=== PATIENT | female | born 1985 | race Caucasian/White ===

== ENCOUNTER 2024-06-07 16:22 | Outpatient (CLI) | payer OTHER, SELFPAY ==
--- NOTE | ~2024-06-07 | XR_ITS ---
EXAM: XR ankle RT 2V, XR ankle LT 2V, XR foot LT 2V, XR foot RT 2V DATE: 06/07/2024 17:02 HISTORY: MULTIPLE JOINT PAIN . COMPARISON: None available. FINDINGS: Normal mineralization. No fracture or dislocation. No lytic or blastic lesion. Mild bilate ral hallux valgus. Joint spaces are maintained. Small osseous excrescences along the superior margin of the navicular bones, larger on the left, of doubtful clinical significance. Prominent os trigonum on the left. Bipartite medial sesamoid bone on the right. Moderate bilateral Achilles and plantar ent hesopathy. No erosion or periosteal change. Soft tissues within normal limits. IMPRESSION: No acute osseous finding in the bilateral ankles or feet, or radiographic evidence of significant art hropathy. Mild bilateral hallux valgus. Prominent left os trigonum which could be a source of chronic posterior ankle pain in some patients. Bipartite medial sesamoid bone in the right MTP joint, likely normal variant unless accompanied by po int tenderness/pain. Moderate Achilles and plantar enthesopathy. Reviewed, dictated and finalized at [facility]. IMPRESSION: No acute osseous finding in the bilateral ankles or feet, or radiographic evide nce of significant arthropathy. Mild bilateral hallux valgus. Prominent left os trigonum which could be a source of chronic posterior ankle p ain in some patients. Bipartite medial sesamoid bone in the right MTP joint, likely normal variant un less accompanied by point tenderness/pain. Moderate Achilles and plantar enthesopathy. IMPRESSION: No acute osseous finding in the bilateral ankles or feet, or radiographic evide nce of significant arthropathy. Mild bilateral hallux valgus. Prominent left os trigonum which could be a source of chronic posterior ankle p ain in some patients. Bipartite medial sesamoid bone in the right MTP joint, likely normal variant un less accompanied by point tenderness/pain. Moderate Achilles and plantar enthesopathy. IMPRESSION: No acute osseous finding in the bilateral ankles or feet, or radiographic evide nce of significant arthropathy. Mild bilateral hallux valgus. Prominent left os trigonum which could be a source of chronic posterior ankle p ain in some patients. Bipartite medial sesamoid bone in the right MTP joint, likely normal variant un less accompanied by point tenderness/pain. Moderate Achilles and plantar enthesopathy.
--- NOTE | ~2024-06-07 | XR_ITS ---
EXAM: XR hand LT 2V, XR hand RT 2V, XR wrist LT 2V, XR wrist RT 2V DATE: 06/07/2024 17:02 HISTORY: MULTIPLE JOINT PAIN . COMPARISON: None available. FINDINGS: Normal mineralization. No fracture or dislocation. No lytic or blastic lesion. Joint space s are maintained. No erosion or periosteal change. Soft tissues within normal limits. IMPRESSION: Normal bilateral hand and wrist radiograph findings. Reviewed, dictated and finalized at location [facility]. IMPRESSION: Normal bilateral hand and wrist radiograph findings. IMPRESSION: Normal bilateral hand and wrist radiograph findings. IMPRESSION: Normal bilateral hand and wrist radiograph findings.
== END 2024-06-07 16:23 | disposition home or self-care (01) ==
PROVIDERS: PCP Internal Medicine; Visit Provider Internal Medicine
DX: R53.81 Other malaise (principal); M20.12 Hallux valgus (acquired), left foot; M20.11 Hallux valgus (acquired), right foot; M25.871 Other specified joint disorders, right ankle and foot; M25.872 Other specified joint disorders, left ankle and foot; M77.8 Other enthesopathies, not elsewhere classified
CPT/HCPCS: 73100; 73120; 73600; 73620

== ENCOUNTER 2025-02-04 13:11 | Emergency (ER) | payer OTHER, SELFPAY ==
--- OUTSIDE RECORDS SUMMARY | 2025-02-04 13:13 | XMS_ITS | Encounter Summary ---
Author Organization [facility] Address [address] [place] [address] Phone Care Team Providers Care Tailing Hand Name Role Phone Lucille Haney MD Primary Care Provider Jose Ortiz MD Primary Care Provider Isela Shell RN Unavailable Shonna Dupree Unavailable Asif Kang MD Primary Care Provider Encounter Details Date Type Department Care Team (Late st Contact Info) Description 07/25/2020 Telephone [facility] Neuro Sleep [address] [place] [address] 6th [address] [place] [address] Ada Arevalo, RPSGT Social History Tobacco Use Types Packs/Day Years Used Date Smoking Tobacco: Former Cigarettes 0.2 0.5 Alcohol Use Standard Drinks/Week Comments Yes 0 (1 standard drink = 0.6 oz pur e alcohol) AUDIT-C Answer Date Recorded Frequency of Alcohol Consumption 2-4 times a thu09/05/2019 Average Number of Drinks Not on file 019 Frequency of Binge Drinking Not on file 05/2019 PHQ-2 Answer Date Recorded PHQ-2 Total Score (If total score is 3 or more points, staff should administer the PHQ-9) 6 02/24/2020 Comments No Sex and Gender Information Value Date Recorded Sex Assigned at Not on file Legal Sex Female 8:08 AM ELEVATOR OPERATOR Gender Identity Female 07/29/2021 4:09 PM CDT Sexual Orientation Straight 09/01/2019 2: 23 PM ELEVATOR OPERATOR documented as of this encounter Plan of Treatment Not on file documented as of this encounter Visit Diagnoses Not on filedocumented in this encounter Additional Health Concerns Infection Onset Date Last Indicated Resolved Time Exposure, COVID-19 Comment:Added automatically based on COVID19 lab answers indicating exposure risk 10/01/2020 10/01/2020 10/16/2020 3:[address] COVID: Suspected 09/17/2021 09/17/2021 09/17/2021 8:47 AM ELEVATOR OPERATOR COVID: Suspected 09/17/2021 09/17/2021 09/18/2021 3:29 AM ELEVATOR OPERATOR COVID: Suspected 02/19/2022 02/19/2022 02/19/2022 8:31 AM CDT COVID: Suspected 02/19/2022 02/19/2022 02/19/2022 8:40 PM CDT COVID: Suspected 05/29/2022 05/29/2022 05/29/2022 6:50 PM CDT COVID19 05/29/2022 05/29/2022 06/08/2022 3:05 AM CDT COVID: Recovered Comment:Added based on recent COVID infection. 06/08/2022 06/09/2022 10/06/2022 3:[address] documented as of this encounter Care Teams Tailing Hand Relationship Specialty Start Date End Date Lucille Haney MD [address] [place] [address] PCP - General Internal Medicine 08/29/19 03/31/22 Jose Ortiz MD [address] [place] [address] PCP - General Internal Medicine 04/01/22 02/09/23 Asif Kang MD [address] [facility] [address] [place] [address] PCP - General Internal Medicine 02/10/23 Isela Shell, RN [address] [facility] [address] [place] [address] Polishing Pad Mounter 10/08/22 Shonna Dupree PA [address] [facility] NEUROLOGY GENERAL, [facility] [address] [place] [address] Physician Gaming Table Operator Physician Gaming Table Operator 02/10/23 documented as of this encounter
--- OUTSIDE RECORDS SUMMARY | 2025-02-04 13:13 | XMS_ITS | Patient Health Record ---
Author Organization [facility] Address [address] [address] Care Team Providers Care Concrete Pump Operator Helper Name Role Phone Nisa Lozada Primary Care Provider [phone] Migration, Provider Unavailable Unavailable Results Component Value Reference Range Notes CORTISOL, TOTAL Reviewed date:02/15/2024 10:08:18 AM Interpretation: Performing Lab:[facility], [address], [place], [address] Salud Tellez MD Notes/Report: FASTING:YES FASTING: YES COMPREHENSIVE METABOLIC PANE L Reviewed date:02/16/2024 10:56:23 AM Interpretation: Performing Lab:[facility], [address], [place], [address] Salud Tellez Notes/Report: FASTING:YES FASTING: YES CYCLIC CITRULLINATED PEPTIDE (CCP) AB (IGG) Reviewed date:02/17/2024 07:13:07 PM Interpretation: Performing Lab:[facility], [address], [place], [address] Salud Tellez MD Notes/Report: FASTING:YES FASTING: YES ACTH, PLASMA Reviewed date:02/23/2024 08:48:44 AM Interpretation: Performing Lab:[facility], [address], [place], [address] Branden Renteria M.D.,PhD Notes/Report: FASTING:YES FASTING: YES JUSTIN IFA SCREEN W/REFL TO TIT ER AND PATTERN, IFA Reviewed date:02/17/2024 07:14:16 PM Interpretation: Performing Lab:[facility], [address], [place], [address] Salud Tellez MD Notes/Report: FASTING:YES FASTING: YES T3, FREE Reviewed date:02/16/2024 10:57:25 AM Interpretation: Performing Lab:[facility], [address], [place], [address] Salud Tellez MD Notes/Report: FASTING:YES FASTING: YES CORTISOL, TOTAL Reviewed date:02/17/2024 07:12:23 PM Interpretation: Performing Lab:[facility], [address], [place], [address] Salud Tellez MD Notes/Report: FASTING:YES FASTING: YES ESTRADIOL Reviewed date:02/16/2024 10:57:53 AM Interpretation: Performing [facility], [address], [place], [address] MarilinKim Tellez Notes/Report: FASTING:YES FASTING: YES RHEUMATOID FACTOR Reviewed date:02/17/2024 07:13:46 PM Interpretation: Performing Lab:[facility], [address], [place], [address] Salud Tellez MD Notes/Report: FASTING:YES FASTING: YES C-REACTIVE PROTEIN Reviewed date:02/17/2024 07:13:24 PM Interpretation: Performing Lab:[facility], [address], [place], [address] Salud Tellez MD Notes/Report: FASTING:YES FASTING: YES FSH Reviewed date:02/16/2024 10:56:51 AM Interpretation: Performing Lab:[facility], [address], [place], [address] Salud Tellez MD Notes/Report: FASTING:YES FASTING: YES COMPLEMENT COMP C3 + C4 Reviewed date:02/17/2024 07:13:16 PM Interpretation: Performing Lab:[facility], [address], [place], [address] Salud Tellez MD Notes/Report: FASTING:YES FASTING: YES COMPLEMENT COMPONENT C3C 117 83-193 mg/dL COMPLEMENT COMPONENT C4C 29 15-57 mg/dL LH Reviewed date:02/16/2024 10:56:57 AM Interpretation: Performing Lab:[facility], [address], [place], [address] Salud Tellez MD Notes/Report: FASTING:YES FASTING: YES PROGESTERONE Reviewed date:02/16/2024 10:58:00 AM Interpretation: Performing Lab:[facility], [address] [place], [address] Salud Tellez Notes/Report: FASTING:YES FASTING: YES PROLACTIN Reviewed date:02/16/2024 10:56:45 AM Interpretation: Performing Lab:[facility], [address], [place], [address] Salud Tellez MD Notes/Report: FASTING:YES FASTING: YES IRON AND TOTAL IRON BINDING CAPACITY Reviewed date:02/16/2024 10:56:30 AM Interpretation: Performing Lab:[facility], [address], [place], [address] Salud Tellez MD Notes/Report: FASTING:YES FASTING: YES SED RATE BY MODIFIED KEITH SALAZAR Reviewed date:02/16/2024 10:56:03 AM Interpretation: Performing Lab:[facility], [address] [place], [address] Salud Tellez Notes/Report: FASTING:YES FASTING: YES T4, FREE Reviewed date:02/16/2024 10:57:15 AM Interpretation: Performing Lab:[facility], [address], [place], [address] Salud Tellez MD Notes/Report: FASTING:YES FASTING: YES TSH Reviewed date:02/15/2024 06:15:09 PM Interpretation: Performing Lab:[facility], [address] [place], [address] Salud Tellez Notes/Report: FASTING:YES FASTING: YES TESTOSTERONE, FREE (DIALYSIS ) AND TOTAL,MS Reviewed date:02/17/2024 07:12:13 PM Interpretation: Performing Lab:[facility], [address] [facility] [address], [place], [address] Paty Tavares MD,PhD Notes/Report: FASTING:YES FASTING: YES TESTOSTERONE, TOTAL, MS 14 2-45 ng/dL For additional information, please refer to https://education.Tricida/faq/OCK120 (This link is being provided for informational/educational purposes only.) (Note) This test was developed and its analytical performance characteristics have been determined by [employer]. It has not been cleared or approved by the FDA. This assay has been validated pursuant to the CLIA regulations and is used for clinical purposes. TESTOSTERONE, FREE 1.4 0.1-6.4 pg/mL (Note) This test was developed and its analytical performance characteristics have been determined by [employer]. It has not been cleared or approved by the FDA. This assay has been validated pursuant to the CLIA regulations and is used for clinical purposes. [facility] [address] [address] [facility] [address] Paty Tavares MD, PhD Medications Medication SIG (Take, Route, Frequency, Duration) Notes Start Date End Date Status Vyvanse 40 MG TAKE 1 CAPSULE (40 M G TOTAL) BY MOUTH EVERY MORNING. for 30 Days Unknown Cymbalta 6 MG *Please review and pick correct strength-formulati on from [employer] options. If intended option is not shown, discontinue and re-order from Quick Search* Unknown Dodex 1000 MCG/ML inject 1000 mcg subcutaneously once weekly for 90 days 02/09/2024 Unknown Zepbound 5 MG/0.5ML as directed subcutaneously once a week Unknown Omeprazole 40 MG 1 cap(s) orally once a day Unknown Problems Problem Type SNOMED Code ICD Code Onset Dates Problem Status W/U Status Risk Notes Problem Hypothyroidism (56710648) Hypothyroidism, unspecified (E03.9) Active confirmed Problem Non-toxic single thyroid nodule (680241523) Nontoxic single thyroid nodule (E04.1) Active confirmed Problem Osteoarthritis (168118615) Unspecified osteoarthritis, unspecified site (M19.90) Active confirmed Problem Obesity (792361179) Obesity, unspecified (E66.9) Active confirmed Problem Autoimmune thyroiditis (64583218) Autoimmune thyroiditis (E06.3) Active confirmed Problem Polyarthritis (580124990) Polyarthritis, unspecified (M13.0) Active confirmed Problem Irregular menstruation (31302750) Irregular menstruation, unspecified (N92.6) Active confirmed Vital Signs Heart Rate 82 /min 05/05/2024 Blood pressure diastolic 97 mm Hg 05/05/2024 Height 66 in 05/05/2024 Blood pressure systolic 140 mm Hg 05/05/2024 Weight 209.0 lbs 05/05/2024 BMI 33.73 kg/m2 05/05/2024 Encounters Encounter Location Date Provider Diagnosis [facility] [address] [place] [address] 02/09/2024 Nisa Lozada Polyarthritis, unspecified M13.0 ; Other fatigue R53.83 ; Vitamin B12 deficiency anemia, unspecified D51.9 ; Irregular menstruation, unspecified N92.6 ; Raised antibody titer R76.0 and Family history of arthritis Z82.61 [facility] [address] [place] [address] 05/05/2024 Nisa Lozada Autoimmune thyroiditis E06.3 ; Vitamin B12 deficiency anemia, unspecified D51.9 ; Obesity, unspecified E66.9 and Dietary counseling and surveillance Z71.3 [address] [place] [address] 08/13/2024 Provider Migration [facility] [address] [place] [address] 07/14/2024 Nisa Lozada Assessments Encounter Date Diagnosis (ICD Code) Assessment Notes Treatment Notes Treatment Clinical Notes Section Notes 02/09/2024 Other fatigue (ICD-10 - R53.83) Send for full iron/vitamin panel. She has borderline low B12- will supplement. Recommended thyroid support / purely holistic to help maintain endogenous thyroid function as she has had back and forth diagnosis hypothyroidism- her most recent TSH/FT4 in ideal range so no clinical indication to start on thyroid replacement at this time. Send for DST to screen for hypercortisolism. 02/09/2024 Polyarthritis, unspecified (ICD-10 - M13.0) CCP antibody with significant pain in ankles, feet, neck and fingers bilaterally- with positive family history of RA. She also exhibits significant fatigue and generalized malaise. Recommended patient consider AIP diet as a potential alternative to help eradicate refined sugars and processed foods that cause inflammation. Refer to rheumatology. 05/05/2024 Vitamin B12 deficiency anemia, unspecified (ICD-10 - D51.9) Continue B12 weekly injections. 05/05/2024 Autoimmune thyroiditis (ICD-10 - E06.3) TSH and FT4 in range- continue on purely holistic thyroid support- patient has noted improvement in hair and nails since start of supplementation along with improvement in sleep and energy/focus. Continue on supplementation for now along with diet low in refined sugars and processed foods. She will be seeing rheumatology at the end of the month for positive CCP antibodies to screen for RA. 02/09/2024 Vitamin B12 deficiency anemia, unspecified (ICD-10 - D51.9) Send for B12 injections- she is aware to complete these once weekly subcutaneously. 05/05/2024 Obesity, unspecified (ICD-10 - E66.9) Continue on zepbound 5 mg weekly-patient tolerating well, weight has not dropped but overall stable, her appetite is suppressed and she is eating better choices/higher protein/lower starch. She is aware to reach out if any nausea, vomiting or GI upset. 02/09/2024 Irregular menstruation, unspecified (ICD-10 - N92.6) Send for full hormone panel- she is on copper IUD so no hormonal influence at this time. 05/05/2024 Dietary counseling and surveillance (ICD-10 - Z71.3) discussed dietary measures in regards to weight loss- importance to restrict calories to 1200 per day if sedentary vs 3151-7714 calories depending on caloric expenditure. She was provided information on griffin [employer] as this program manages metabolic syndrome and products include insulin sensitizers along with thyroid support/supplementa tion to help tailor weight loss in individuals who struggle with underlying autoimmune thyroid conditions and hyperglycemia (fasting glucose of 97 mg/dL). Spent up to 20 minutes discussing alternative weight loss options. 02/09/2024 Raised antibody titer (ICD-10 - R76.0) Refer to rheumatology with mildly positive CCP, positive arthritis and strong family hx of RA. 02/09/2024 Family history of arthritis (ICD-10 - Z82.61) 02/09/2024 Other Spent 25 minute s preparing to see the patient (ex review of tests/chart), obtaining and / or reviewing separately obtained history, performing a medically appropriate examination and/or evaluation, counseling and educating the patient/family/career development director, ordering medications, tests, or procedures, referring and communicating with other health home health caregiver, documenting clinical information in the electronic or other health record, independently interpreting results and communicating results to the patient/family/career development director and care coordinating patient plan. Patient alert and oriented x 4 and aware of discussion noted above and in agreeance to plan in management of fatigue, finding of positive CCP and workup for hormone panel. 05/05/2024 Other Spent 25 minute s preparing to see the patient (ex review of tests/chart), obtaining and / or reviewing separately obtained history, performing a medically appropriate examination and/or evaluation, counseling and educating the patient/family/career development director, ordering medications, tests, or procedures, referring and communicating with other health home health caregiver, documenting clinical information in the electronic or other health record, independently interpreting results and communicating results to the patient/family/career development director and care coordinating patient plan. Patient alert and oriented x 4 and aware of discussion noted above and in agreeance to plan in management of weight management/obesity, vitamin B12 def and autoimmune thyroiditis. Plan Of Treatment Pending Test Test Name Order Date Ultrasound neck & thyroid 12/11/2023 -CCP ANTIBODY 3133 12/11/2023 Ultrasound thyroid 12/11/2023 DNA(DS) AB, HIGH AVIDITY 12/11/2023 THYROID PEROXIDASE AND THYROGLOBULIN ANT IBODIES 12/11/2023 Insurance Providers Payer Name Payer Address Payer Phone Subscriber Number Group Number Insured Name Patient Relationship to Insured Coverage Start Date Coverage End Date [facility] [address] [address] [place] [address] [id number] Halima Becerra Self - patient is the insured
--- OUTSIDE RECORDS SUMMARY | 2025-02-04 13:13 | XMS_ITS ---
Author Organization [facility] [employer] [facility] Address [address] [facility] [place] [address] Care Team Providers Care Head Of Advertising Name Role Phone Nisa Lozada Primary Care Provider Encounters Encounter Location Date Provider Diagnosis [facility] - Nisa Lozada [address] [place] [address] 07/14/2024 Nisa Lozada Plan Of Treatment No Information Progress Notes * Cain BECERRAOB:[birth year] (38 yo F)Acc No.[id number]:07/14/2024 Patient: Halima NATHAN :1985 A ge:38 Y S ex:Female Phone: Address: [place] [address] * true * Date: Generated for Printi ng/Fashellyg/eTransmitting on: 0 02/04/2025 01:13 PM CDT
--- OUTSIDE RECORDS SUMMARY | 2025-02-04 13:13 | XMS_ITS | Clinical Summary ---
Author Organization [facility] Address [address] [place] [address] [place] [address] Care Team Providers Care Tariff Clerk Name Role Phone Unavailable Primary Care Provider Unavailabl e Allergies No known active allergies Encounters Date Type Department Care Team Description 12/14/2024 External Device Data [facility] ABSTRACTION Provider, Abstract 12/03/2024 External Device Data [facility] ABSTRACTION Provider, Abstract 12/02/2024 External Device Data [facility] ABSTRACTION Provider, Abstract 11/30/2024 External Device Data [facility] ABSTRACTION Provider, Abstract 11/16/2024 External Device Data [facility] ABSTRACTION Provider, Abstract from Last 3 Months Social History Tobacco Use Types Packs/Day Years Used Date Smoking Tobacco: Never Assessed Comments Unknown Sex and Gender Information Value Date Recorded Sex Assigned at Not on file Legal Sex Female 1:10 PM CDT Gender Identity Not on file Sexual Orientation Not on file Plan of Treatment Health Maintenance Due Date Last Done Comments DTAP/TDAP/TD VACCINES (1 - Tdap) 2002 HEPATITIS B VACCINES (1 of 3 - 19+ 3-dose series) 2002 HPV/Cotest (21-29) 2004 CERVICAL CANCER SCREENING 2013 HPV/Cotest (30-65) 2013 PAP SMEAR 2013 BREAST CANCER SCREENING 2023 INFLUENZA VACCINE (#1) 2024 HPV VACCINES Aged Out No longer eligi ble based on patient's age to complete this topic Insurance [employer]
--- OUTSIDE RECORDS SUMMARY | 2025-02-04 13:13 | XMS_ITS | Continuity of Care Document ---
Author Organization [facility] Address [address] [place] [address] Phone Care Team Providers Care Estimate Clerk Name Role Phone Larry PT,MPT,ATC, Andrew Unavailable Unavai lable Procedures Procedure Date Therapeutic Activities Neuromuscular Re-Ed Manual Therapy Therapeutic Activities Manual Therapy Neuromuscular Re-Ed Neuromuscular Re-Ed Therapeutic Activities Therapeutic Exercise Therapeutic Activities Therapeutic Exercise Neuromuscular Re-Ed Therapeutic Activities Neuromuscular Re-Ed Therapeutic Exercise Therapeutic Activities Neuromuscular Re-Ed Therapeutic Exercise Therapeutic Activities Neuromuscular Re-Ed Therapeutic Exercise Manual Therapy Neuromuscular Re-Ed PT Evaluation Moderate Complexity Therapeutic Activities Advance Directives Directive Yes / No Effective Date File Name No Information Encounters Encounter Description Practice Location Reason(s) For Visit Diagnoses Date Provider Providers Copied on Encounter [facility], [address], [place], [place], [id number], tel:[phone] [place] No Information Larry Muniz , [place], [place]. [facility], [place], [place], [id number], [place] tel:[phone] [place] No Information 2 Larry Muniz , [place], [place]. Referring Provider: Clint Sanabria, [address], [place], [address]. tel:[phone] [place] [id number] [address], [place], [place], [id number], [place] tel:[phone] [place] No Information 2 Josejulissa Den. . Referring Provider: Clint Sanabria, [address], [place], [address]. tel:[phone] [place] [id number] [address], [place], [place], [id number], [place] tel:[phone] [place] No Information 2 Larry Muniz , [place], [place]. Referring Provider: Clint Sanabria, [address], [place], [address]. tel:[phone] [place] [id number] [address], [place], [place], [id number], [place] tel:[phone] [place] No Information 2 Larry Muniz , [place], [place]. Referring Provider: Clint Sanabria, [address], [place], [address]. tel:[phone] [place] [id number] [address], [place], [place], [id number], [place] tel:[phone] [place] No Information 2 Larry Muniz , [place], [place]. Referring Provider: Clint Sanabria, [address], [place], [address]. tel:[phone] [facility], [place], [place], [id number], [place] tel:[phone] [place] No Information 2 Short Zaynab. . Referring Provider: Clint Sanabria, [address], [place], [address]. tel:[phone] [facility], [address], [place], [place], [id number], tel:[phone] [place] No Information 2 [facility]. Referring Provider: Clint Sanabria, [address], [place], [address]. tel:[phone] [facility] [address], [place], [place], [id number], tel:[phone] [place] No Information 2 [place], . Referring Provider: Clint Sanabria, [address], [place], [address]. tel:[phone] Family History Family Member Type Diagnosis Age At Onset No Information Payers Payer name Insurance type Covered green party ID [facility] dangelorosario(s) [facility] CI [id number] Social History Type Description Quantity Date Captured Comments Sex Female Smoking Status No Information Chief Complaint And Reason For Visit No Information Reason For Referral Reason For Referral No Information History Of Present Illness Encounter Date Complaint History Of Prese nt Illness No Information Functional Status Date Functional Assessmen t No Information Instructions Date Instruction Lio Irizarryr erika Giving encouragement to exercise Related to Overweight Giving encouragement to exercise Related to Overweight Assessments Type Assessment Date No Information Patient Care Teams Name Effective Dates (start - stop) Status Members No Information
--- OUTSIDE RECORDS SUMMARY | 2025-02-04 13:14 | XMS_ITS | Referral Summary ---
Author Organization [facility] Address [address] [place] [address] Care Team Providers Care Territory Account Representative Name Role Phone Shonna Dupree Unavailable [phone] Asif Kang MD Primary Care Provider Encounters Date Type Department Care Team Description 02/02/2025 4:00 PM CDT Procedure visit [facility] [address] [facility] 6th Floor [address] [place] [address] Filiberto Matos MD Intractable chronic migraine without aura and without status migrainosus (Primary Dx) 12/12/2024 9:00 AM CDT Office Visit [facility] [address] [facility] 7th [address] [place] [address] Makeda Jimenez MD Encounter for annual routine gynecological examination (Primary Dx); Abnormal mammogram; Encounter for routine checking of intrauterine contraceptive device (IUD); Mitral valve insufficiency, unspecified etiology; Mixed stress and urge urinary incontinence; CHAR (generalized anxiety disorder); Recurrent major depressive disorder, in full remission; Attention deficit hyperactivity disorder (ADHD), predominantly inattentive type; History of bariatric surgery; History of spinal fusion 11/21/2024 3:00 PM PHOTOENGRAVING MACHINE OPERATOR/TENDER Procedure visit [facility] [address] [facility] [address] [place] [address] [phone] MDD (major depressive disorder), recurrent severe, without psychosis (HCC) (Primary Dx) 11/14/2024 3:00 PM PHOTOENGRAVING MACHINE OPERATOR/TENDER Procedure visit [facility] [address] [place] [phone] MDD (major depressive disorder), recurrent severe, without psychosis (HCC) (Primary Dx) 11/11/2024 Orders Only [facility] [address] [place] [address] [place] [phone] Raven Allen Intractable chronic migraine without aura and without status migrainosus (Primary Dx) 11/11/2024 3:00 PM PHOTOENGRAVING MACHINE OPERATOR/TENDER Office Visit [facility] [address] [place] [address] [phone] Jane Orosco MD Severe episode of recurrent major depressive disorder, without psychotic features (HCC) (Primary Dx) 11/11/2024 3:00 PM PHOTOENGRAVING MACHINE OPERATOR/TENDER Procedure visit [facility] [address] [place] [address] [phone] MDD (major depressive disorder), recurrent severe, without psychosis (HCC) (Primary Dx) 11/10/2024 4:00 PM PHOTOENGRAVING MACHINE OPERATOR/TENDER Procedure visit [facility] [address] [place] [phone] Filiberto Matos MD Intractable chronic migraine without aura and without status migrainosus (Primary Dx) 11/07/2024 3:00 PM PHOTOENGRAVING MACHINE OPERATOR/TENDER Procedure visit [facility] [address] [place] [address] [phone] Severe episode of recurrent major depressive disorder, without psychotic features (HCC) [F33.2] (Primary Dx) from Last 3 Months Allergies Active Allergy Reactions Criticality Noted Date Comments Sulfamethoxazole-Trimethoprim Hives Medium 2019 Topiramate Fatigue Low 02/25/2023 Medications * This document contains information received from the source organization and may not represent a complete record from that organization. levonorgestreL (LILETTA) 20.1 mcg/24 hrs (6 yrs) 52 mg IUDIndications:Pr egnancy Contraception 1 each by intrauterine route once Active multivit with calcium,iron,min (WOMEN'S DAILY MULTIVITAMIN ORAL)Indications: prevent vitamin deficiency Take 1 tablet by mouth every morning Active DULoxetine DR (CYMBALTA) 60 mg capsule Take 1 capsule (60 mg total) by mouth daily 30 capsule 11 04/19/20 24 Active cyanocobalamin (Vitamin B-12) 1,000 mcg/mL injection INJECT 1000 MCG SUBCUTANEOUSLY ONCE WEEKLY 04/29/20 24 Active ubrogepant (UBRELVY) 100 mg tabletIndications :Chronic migraine without aura without status migrainosus, not intractable Take 1 tablet (100 mg total) by mouth once as needed for migraine May repeat dose once in 2 hours if no relief. Do not exceed 2 doses in 24 hours. 10 tablet 11 09/12/20 24 025 Active tirzepatide, weight loss, (Zepbound) 5 mg/0.5 mL pen injectorIndicatio ns:BMI 35.0-35.9,adult Inject 0.5 mL (5 mg total) under the skin every 7 days 2 mL 3 01/21/20 25 Active ondansetron ODT (ZOFRAN-ODT) 4 mg disintegrating tabletIndications :Intestinal malabsorption, unspecified type Take 1 tablet (4 mg total) by mouth every 8 (eight) hours as needed for nausea 9 tablet 2 01/21/20 25 Active nitrofurantoin monohydrate (MACROBID) 100 mg capsule Take 1 capsule (100 mg total) by mouth 2 (two) times a day for 7 days 14 capsule 02/03/20 25 025 Active tirzepatide, weight loss, (Zepbound) 5 mg/0.5 mL pen injectorIndicatio ns:BMI 35.0-35.9,adult Inject 0.5 mL (5 mg total) under the skin every 7 days 2 mL 3 06/30/20 24 025 Disconti nued(Reo rder) ondansetron ODT (ZOFRAN-ODT) 4 mg disintegrating tabletIndications :Intestinal malabsorption, unspecified type TAKE 1 TABLET BY MOUTH EVERY 8 HOURS NEEDED FOR NAUSEA 9 tablet 2 12/03/19 25 025 Darrius mueller([facility]) Hospital, Clinic, or Other Facility Administered Medication Ordered Dose Route Frequency Start Date End Date Status onabotulinumtoxin A (BOTOX) 200 unit injection 200 UnitsIndications:Int ractable chronic migraine without aura and without status migrainosus 200 Units OTHER Once for Clinic-Administer ed Medication 02/02/2025 02/02/2025 Ended Active Problems Problem Noted Date Diagnosed Date Severe episode of recurrent major depressive disorder, without psychotic features 05/12/2024 Overview (05/12/2024): Pt stated, I really want to find darnell in life. I really want to attack this depression and anxiety to the point where it is not just being muted by medication. Assessment & Plan (07/26/2024 6:07 PM CDT): By the end of the 16 sessions, Pt will learn at least 3 new CBT and DBT coping skills in order to reduce her anxiety and depression by at least 50-60 percent. Assessment & Plan (05/12/2024 1:13 PM CDT): By the end of the 16 sessions, Pt will learn at least 3 new CBT and DBT coping skills in order to reduce her anxiety and depression by at least 50-60 percent. Moderate episode of recurrent major depressive d isorder 10/28/2023 LLQ pain 10/26/2023 Assessment & Plan (10/26/2023 10:40 AM PHOTOENGRAVING MACHINE OPERATOR/TENDER): To usg Syncope and collapse 03/22/2023 Assessment & Plan (06/07/2024 3:51 PM CDT): 38-year-old female with recurrent episodes of spontaneous loss of consciousness. By history I think these episodes sound most consistent with vasovagal syncope. This is in keeping with her structurally normal heart, benign EKG and orthostatic vital signs being negative. Seizures would be a less likely etiology. I think a bradyarrhythmia causing her symptoms would be less likely given the above, but is certainly a possibility. Will do a 30 day event monitor for further evaluation. If this is unremarkable and she has no further events, can defer further evaluation. If she continues to have periodic events that are not captured on a monitor, discussed EP referral with possible loop recorder implantation/tilt-table testing. Recommended regular hydration, consideration of compression socks. She has had multiple echocardiograms in the near recent history so I do not think repeating this is necessary at this time Assessment & Plan (03/22/2023 1:19 PM CDT): Etiology likely vasovagal syncope. Alert and oriented x4, exam with point tenderness of multilevel cervical and lumbar regions, no sensory or motor deficits noted on hospitalist exam in ED. Ct head, spine with no acute abnormalities. Features of fainting episode suggest vasovagal (lightheadeded, dizzy, cold flash) and are consist with a previous vasovagal episode in 2019 which was more severe after donating platelets (white out vision, cold flash, persistent hypotension, EMS called). Neuro exam remained normal at 1000 03/22/23. She was given a liter of fluid due to relative hypotension and self attested poor oral intake allowed in the ED overnight with subjective dehydration. While she has exclusion criteria for [place] Syncope Risk Score or [place] Syncope Rule, there are several features of low risk syncopal episode. She is <50 years of age. No history of cardiovascular disease. Prodromal symptoms before the syncope (suggestive of noncardiac syncope). Occurred in the standing position. EKG is normal. Previous episode of syncope with clear trigger and similar presentation. Normal physical exam, neurologic exam, and laboratory evaluation. No central pulmonary embolism, no acute abnormality within the chest, abdomen, or pelvis. No acute intracranial hemorrhage. No evidence of acute fracture in the cervical, thoracic, or lumbar spine, given limited assessment of the thoracolumbar spine due to streak artifact from posterior instrumented spinal fusion. Episode is not consistent with seizure. Upper respiratory disease 03/22/2023 Assessment & Plan (03/22/2023 4:39 AM CDT): Has been on flonase, continue prn Concussion 03/22/2023 Assessment & Plan (03/22/2023 1:33 PM CDT): TBI after fainting with ~10 minute LoC and post TBI amnesia. Neuroimaging is negative and she has no neurological deficits identified on exam this AM. She has had resolving amnesia, and her chronic headache is back at baseline. She is remembering more and more details about the event, and recalls feeling ill all day. She may have had headache associated with the TBI, if so, it has greatly improved by discharge, back to baseline. After head injury, most patients with reassuring clinical features with normal neuroimaging can be managed safely as outpatients after an initial period of observation. She has been observed for a sufficient length of time (>6 hours) and is safe and agreeable with discharge. Chronic neck pain 12/23/2022 Assessment & Plan (03/22/2023 12:59 PM CDT): Follows pain management, received trigger point injection on 02/25/23 which helped with pain for 3 days followed by recurrence of pain. Per patient, it felt as if she saved up several headaches and she was quite incapacitated for a period of time. - continue duloxetine, acetaminophen JUSTIN positive 05/13/2022 Euthyroid thyroiditis 05/13/2022 Mitral valve insufficiency 05/13/2022 Arthritis 05/13/2022 Multiple thyroid nodules 05/13/2022 Elevated ferritin 05/13/2022 Esophageal dysphagia 04/17/2022 Well woman exam 03/10/2022 Overview (10/26/2023): Lab: Pap:h/o abnl. Last was normal. Yearly pap recommended Due for labs. Hema: 08/2023- due for repeat in 6m. Dr. Kang is following. Colonoscopy: BMD: Gardasil:up to 43 discussed. Eleanor put in 2018 - as she is not having periods, will continue until the [age] year kassy. Assessment & Plan (10/26/2023 10:40 AM PHOTOENGRAVING MACHINE OPERATOR/TENDER): Pap done. RTO 12m. I will send the results to the portal. If she has not heard in a week, to call the office. Assessment & Plan (03/10/2022 10:06 AM CDT): Pap done. RTO 12m. I will send the results to the portal. If she has not heard in a week, to call the office. To routine labs. She was applauded for her weight loss and encouraged to continue on with her healthy lifestyle. Mixed stress and urge urinary incontinence 03/10 Overview (03/10/2022): Both GSI and urge. Wearing pads Assessment & Plan (03/10/2022 10:01 AM CDT): To ua, micro and c&S. Is interested in anticholingerics. Will RX once ua is back. ANTOINETTE (obstructive sleep apnea) 11/24/2021 Assessment & Plan (03/22/2023 1:01 PM CDT): She has not been tolerating CPAP. - Patient interested to see inspector packer, referral for outpatient on discharge. Iron deficiency 10/27/2021 Assessment & Plan (10/27/2021 2:52 PM PHOTOENGRAVING MACHINE OPERATOR/TENDER): Likely 2/2 gastric bypass. No anemia. - Cont iron supplement, she will ensure she is getting 65mg every day elemental iron. - Needs recheck of iron and ferritin with next labs. Fibromyalgia 10/27/2021 Assessment & Plan (03/22/2023 1:00 PM CDT): Cont duloxetine. Assessment & Plan (10/27/2021 3:06 PM PHOTOENGRAVING MACHINE OPERATOR/TENDER): No e/o inflammatory arthritis on labs or imaging. Sx well controlled on duloxetine. Orthostasis 10/27/2021 Assessment & Plan (10/27/2021 3:19 PM PHOTOENGRAVING MACHINE OPERATOR/TENDER): Per pt orthostatics: laying down for 5 minutes-122/79 61bpm. Sitting for 2 minutes: 113/78 82bpm. Standing for 2 minutes: 109/77 and 94bpm. Recent CBC and CMP normal. - Will check EKG, AM cortisol,TSH to screen for abnormalities, but I think sx more likely related to duloxetine SE. - Rec hydration, inc salt in diet, and compression socks in the meantime. - Red flag sx discussed and she will call if these occur Attention deficit hyperactiv ity disorder (ADHD), predominantly inattentive type 08/02/2021 Assessment & Plan (03/22/2023 4:18 AM CDT): Continue lisdexamfetamine, dose was increased to 40 mg daily by psych on 10/01/2022 Assessment & Plan (10/27/2021 3:05 PM PHOTOENGRAVING MACHINE OPERATOR/TENDER): F/b Dr. Partida. - Cont Adderall XR 20mg every day Chronic sacroiliac pain 12/30/2020 Recurrent major depressive disorder, in full rem ission 08/16/2020 CHAR (generalized anxiety disorder) 02/24/2020 Assessment & Plan (10/27/2021 3:05 PM PHOTOENGRAVING MACHINE OPERATOR/TENDER): Now f/b Dr. Partida. - Cont duloxetine DR 60mg qd Assessment & Plan (02/24/2020 4:37 PM CDT): PHQ Screening PHQ-2 Total Score (If total score is 3 or more points, staff should administer the PHQ-9): 6 PHQ-9 Total Score: 22. CHAR-7 is 21. C/w severe MDD and CHAR. - Pt was counseled regarding duration to effect, duration of treatment, side effects including withdrawal. After discussion of treatment approaches for depression, pt gave informed consent to start duloxetine DR 30mg every day x1 week, then 60mg every day. May have benefits for her lumbar radiculopathy as well.. - Recommended therapy and counseling. - Discussed that SI is an emergency. Provided with crisis resources. - Counseled regarding strategies to reduce stress including physical activity. - Follow-up in 6 weeks. Intractable chronic migraine without aura and without status migrainosus 10/04/2019 Assessment & Plan (10/04/2019 9:59 AM PHOTOENGRAVING MACHINE OPERATOR/TENDER): Recommend she start amytriptyline. ANDRADE diet and supplements discussed. Mixed conductive and sensori neural hearing loss of left ear with restricted hearing of right ear 10/04/2019 Tinnitus of both ears 09/07/2019 Assessment & Plan (09/07/2019 9:14 PM PHOTOENGRAVING MACHINE OPERATOR/TENDER): Given concurrent dizziness, will refer to ENT. - ENT referral today Chronic daily headache 09/07/2019 Assessment & Plan (03/22/2023 12:59 PM CDT): Seen by neurology on 12/23/22 for history of migraines and chronic daily headaches which I different from her prior migrainous attacks. There accompanied by pressure and neck in a squeezing sensation. Headaches are triggered by stress. Recently attempted topiramate with rivegepant, but experienced extreme drowsiness and glossodynia at ODT tablet disintegration site. Recently self discontinued verapamil after 3 weeks due to apparent non-effect. Has also tried cyclobenzaprine perhaps for chronic tension headache and discontinued due to extreme drowsiness. She has experienced intolerable side effects with more than one Triptan. She generally attempts to use a headache cap, takes a melatonin, and sleep to manage daily headaches. We have attempted to get a dose of Fioricet to her, but have experienced delays due to moving between ED and Obs, and narcotic delivery is not fast at [facility]. We will attempt to give a dose, and send a dose to her chosen pharmacy. She will see neurology in 5 days for a routine appointment, which is advantageous in the setting of recent concussion. Assessment & Plan (10/17/2019 5:49 PM PHOTOENGRAVING MACHINE OPERATOR/TENDER): Red flags of new onset after 33 yo, different from prior headache semiology, with new dizziness and tinnitis. Normal neuro exam. Suspect chronic daily migraine with vestibular component. - bMRI with T2 hyperintense fluid in the left mastoid with diffusion restriction. Recommendation is for further evaluation with CT to evaluate underlying bony architecture, particularly if the patient's headaches are left-sided or if there is pain to palpation at this site. Partially empty sella without other signs of increased intracranial pressure such as CSF surrounding the optic nerves, flattening of the globes, or low-lying cerebellar tonsils. - F/u CT tomorrow to evaluate L mastoid. She is seeing ENT tomorrow as well, appreciate insight into MRI findings and dizziness. - Stop topamax d/t paresthesias. - Start amitriptyline 10mg qhs - Poorly tolerant of triptans in the past due to muscle spasms. Can take naproxen 440mg bid prn for headache. - Counseled to limit caffeine and EtOH, maintain hydration, get adequate sleep, get regular physical activity. Assessment & Plan (09/07/2019 9:18 PM PHOTOENGRAVING MACHINE OPERATOR/TENDER): Red flags of new onset after 33 yo, different from prior headache semiology, with new dizziness and tinnitis. Normal neuro exam. Suspect chronic daily migraine with separate vestibular d/o but need to exclude secondary headache. - bMRI w and wo contrast ordered today. - Start topamax 25mg every day. Side effects and expected degree of improvement discussed. - Poorly tolerant of triptans in the past due to muscle spasms. Can take naproxen 440mg bid prn for headache. - Counseled to limit caffeine and EtOH, maintain hydration, get adequate sleep, get regular physical activity. Excessive daytime sleepiness 09/07/2019 Assessment & Plan (09/07/2019 5:09 PM PHOTOENGRAVING MACHINE OPERATOR/TENDER): Stop-Bang is 1, but her daytime sleepiness is severe enough to warrant eval by sleep medicine for ANTOINETTE, narcolepsy, other hypersomnia. - Referral to sleep med. - Counseled to avoid driving when sleepy Cervical radiculopathy 07/19/2012 Herniated lumbar intervertebral disc 07/09/2011 Lumbosacral radiculopathy 07/09/2011 Resolved Problems Problem Noted Date Diagnosed Date Resolved Date Cold right foot 05/13/2022 02/10/2023 Encounter for routine checki ng of intrauterine contraceptive device (IUD) 03/10/2022 02/10/2023 Overview (03/10/2022): eleanor due out 2024 Assessment & Plan (03/10/2022 9:23 AM CDT): Doing well with eleanor. Will continue on. Amenorrheic. Sebaceous cyst 03/10/2022 02/10/2023 Overview (03/10/2022): B/l on vulva- multiple Assessment & Plan (03/10/2022 10:03 AM CDT): We dicussed that I no of no way to prevent and would also recommend watchful waiting. Achilles tendinitis of right lower extremity 2 02/10/2023 Nutritional counseling 05/09/202103/10 Chronic heel pain 12/30/2020 03/10/2022 Polyarthralgia 12/30/2020 10/27/2021 Assessment & Plan (12/30/2020 3:27 PM CDT): With possible enthesitis, sacroiliitis as etiology of ankle and back pain, c/f SpA. Pt reports prior dx of fibromyalgia with significant improvement on gabapentin previously. - Labs/ imaging as noted. - Discussed today the pathophysiology, dx, and tx of fibromyalgia. She does not have typical tender points on exam today, but discussed this is no longer required for diagnosis. While above studies are pending, can start gabapentin 300mg qhs and increase to tid as tolerated. Recommended regular, low impact physical activity as well. Dyspnea on exertion 10/07/2020 10/27/19 Assessment & Plan (10/07/2020 9:08 PM PHOTOENGRAVING MACHINE OPERATOR/TENDER): With recent EKG showing RSR' in V1 and low voltages. Suspect this is a variant of normal and DOWLING is due to deconditioning, but will eval for cardiopulmonary etiologies. She has no risk factors for CV disease save for obesity and a minimal smoking history (quit in 2007). Recent CBC without e/o anemia - Red flag sx discussed and she will present to ED if these occur Frequent urinary tract infections 09/06/2020 02/10/2023 Overview (03/22/2022): 03/22/22- staph - see results Morbid obesity (CMS/[facility]) 08/02/2020 Assessment & Plan (10/27/2021 3:04 PM PHOTOENGRAVING MACHINE OPERATOR/TENDER): Now with 73lbs of weight loss since sleeve gastrectomy 04/2021. - Cont f/u with bariatric surgery - cont healthy diet and exercise. - cont bariatric MVI Urinary urgency 01/02/2020 02/10/2023 Assessment & Plan (01/02/2020 2:42 PM CDT): Given typical UTI sx, will treat empirically while awaiting lab results. - UA ordered - Tx with macrobid 100mg bid x5 days. SER - Counseled to hydrate, void after intercourse. - Red flag sx discussed and she will call if these occur - Rec she reduce bladder irritants in diet given hx of mild chronic urgency. Acute nasopharyngitis 10/17/20192021 Assessment & Plan (10/17/2019 5:51 PM PHOTOENGRAVING MACHINE OPERATOR/TENDER): Seen at and dx with bronchitis. No e/o wheezing on exam today, suspect post nasal drip is responsible for cough. No sx of bacterial sinusistis or otitis media today. - Complete steroids as rx by urgent care. Can trial albuterol for cough. - Recommend nasal fluticasone (Flonase) with 2 sprays in each nostril once a day. - Rest, hydration, can trial humidifier and facial steaming as well for sx. Conductive hearing loss of l eft ear with unrestricted hearing of right ear 10/04/20192022 Assessment & Plan (10/04/2019 10:00 AM PHOTOENGRAVING MACHINE OPERATOR/TENDER): TM appears lateralized on exam. We discussed options of amplification, surgery- she will consider. MRI shows area in mastoid possibly concerning for cholesteatoma which is possible given her history of ear surgery at 6 yo- will followup CT. I do not think her symptoms are likely related to the mastoid lesion. Conductive hearing loss of r ight ear with restricted hearing of left ear 10/04/2019 3 Fatigue 09/07/2019 10/27/2021 Routine general medical exam ination at a health care facility 09/05/2019 03/10/2022 Assessment & Plan (10/25/2021 11:38 AM PHOTOENGRAVING MACHINE OPERATOR/TENDER): - Depression screen: PHQ Screening - A1c: normal - Lipids: normal - Mammogram Discuss at 38 - Pap: 12/2017, WNL, hx of abnormals. F/b [facility]. - HIV: prev screened and negative - Hep C: screen today - Other STI screen: not indicated - Influenza: UTD - - Td/Tdap: likely UTD 2017. - HPV: not done - COVID booster UTD Routine health maintenance objectives discussed and orders placed for any outstanding screening studies as noted. Physical exam performed as above.Routine annual labs, if needed, have been ordered and will be reviewed with patient when results available. Assessment & Plan (09/05/2019 10:46 AM PHOTOENGRAVING MACHINE OPERATOR/TENDER): - Depression screen: PHQ Screening PHQ-2 Total Score (If total score is 3 or more points, staff should administer the PHQ-9): 0 - A1c: screen, family hx - Lipids: screen today - Mammogram Discuss at 38 - Pap: 12/2017, WNL, hx of abnormals - HIV: prev screened and negative - Other STI screen: not indicated - Influenza: UTD 19-20 - Td/Tdap: unsure - HPV: not done Routine health maintenance objectives discussed and orders placed for any outstanding screening studies as noted. Physical exam performed as above.Routine annual labs, if needed, have been ordered and will be reviewed with patient when results available. History of arthrodesis 07/09/201102/10 Immunizations Immunization Administration Dates Next Due COVID-19 mRNA ([employer]) 0.3 m L (30 mcg) vaccine (12 years and up) 06/27/2024 Influenza, Trivalent, Cell C ulture-based MDCK, Preservative Free, Antibiotic Free, Intramuscular 06/27/2024 Influenza, Unspecified 06/28/2022 [employer] SARS-CoV-2 Monovalent Vaccination (12+ Yrs) SHIN-READY TO USE 10/17/2021 Pfizer SARS-CoV-2 Monovalent Vaccination (12+ Yrs) PURPLE 10/25/2020,10/06/2020 Social History Tobacco Use Types Packs/Day Years Used Date Smoking Tobacco: Never Smokeless Tobacco: Never Tobacco Cessation:Counseling Given: Not Answered Alcohol Use Standard Drinks/Week Comments Yes 0 (1 standard drink = 0.6 oz pur e alcohol) Humiliation, Afraid, Rape, and Kick questionnair e Answer Date Recorded Within the last year, have y ou been afraid of your partner or ex-partner? No 10/26/2023 Within the last year, have y ou been humiliated or emotionally abused in other ways by your partner or ex-partner? No Within the last year, have y ou been kicked, hit, slapped, or otherwise physically hurt by your partner or ex-partner? No 10/26/2023 Within the last year, have y ou been raped or forced to have any kind of sexual activity by your partner or ex-partner? No 10/26/2023 AUDIT-C Answer Date Recorded Q1: How often do you have a drink containing alcohol? Never 06/13/2022 Q2: How many drinks containi ng alcohol do you have on a typical day when you are drinking? Patient does not drink Q3: How often do you have si x or more drinks on one occasion? Never 06/13/2022 PHQ-2 Answer Date Recorded PHQ-2 Total Score (If total score is 3 or more points, staff should administer the PHQ-9) 0 10/26/2023 Personal Safety Answer Date Recorded Have you ever been in or are you currently in a harmful physical or emotional relationship or is someone making you feel afraid or unsafe? 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 file Not on file Not on file Not on file Not on file Not on file Not on file Last Filed Vital Signs Vital Sign Reading Time Taken Comments Blood Pressure 110/78 02/02/2025 3:46 PM CDT Pulse 104 02/02/2025 3:46 PM CDT Temperature 36.2 C (97.2 F) 02/02/2025 3:46 PM CDT Respiratory Rate 18 05/24/2024 8:35 AM CDT Oxygen Saturation 98% 02/02/2025 3:46 PM CDT Inhaled Oxygen Concentration - - Weight 77.8 kg (171 lb 9.6 oz) 12/12/2024 9:23 A M CDT Height 167.6 cm (5' 6 ) 02/02/2025 3:46 PM CDT Body Mass Index 27.7 12/12/2024 9:23 AM CDT Plan of Treatment Not on file Medical Devices Implanted Type Area Supervisor Ditching Device Identifier Shelf Expiration Date Model / Serial / Lot Spinal Fusion Spine Thoracic [employer] Ar-1927bct Corkscrew Suturetape 5.5mm 14.7mm Bioabsorbable Full Thread 1.3mm - [id number] Implanted:Qty: 1 on 12/03/2021 by Clint Sanabria MD at [facility] Right: Achilles Tendon [employer] [id number] 12/26/2021 AR-1927BC T / / [id number] [employer] Ar-1927bct Corkscrew Suturetape 5.5mm 14.7mm Bioabsorbable Full Thread 1.3mm - [id number] Implanted:Qty: 1 on 12/03/2021 by Clint Sanabria MD at [facility] Right: Achilles Tendon [employer] [id number] 05/28/2022 AR-1927BC T / / Explanted Type Area Supervisor Ditching Device Identifier Shelf Expiration Date Model / Serial / Lot [employer] [id number] Tamara .062in 9in Trocar Point One End Orthopedic Wire - [id number] Explanted:Qty: 1 on 12/03/2021 at [facility] Right: Achilles Tendon [employer] [id number] / / Procedures Procedure Name Priority Date/Time Associated Diagnosis Comments PAP AND HPV, REFLEX TO HPV GENOTYPES Routine 10/26/2023 10:42 AM PHOTOENGRAVING MACHINE OPERATOR/TENDER Well woman exam SCREENING MAMMOGRAM BILATERAL W JOSE JUAN Schedule Routine, Read Routine (OP Routine) 09/04/2023 2:57 PM PHOTOENGRAVING MACHINE OPERATOR/TENDER Screening mammogram, encounter for HEPATITIS C ANTIBODY Routine 11/15/2021 8:35 AM PHOTOENGRAVING MACHINE OPERATOR/TENDER Routine general medical examination at a health care facility from Last 3 Months or Most Recently Relevant to Health Maintenance Results * Pap and HPV, reflex to HPV Genotypes (10/26/2023 10:42 AM PHOTOENGRAVING MACHINE OPERATOR/TENDER) Clinical indication Comment [facility] - 01 Comment:NEGATIVE FOR INTRAEP ITHELIAL LESION OR MALIGNANCY. Specimen adequacy: Comment [facility] - 01 Comment: Satisfactory for evaluation. Endocervical and/or squamous metaplastic cells (endocervical component) are present. Clinician provided ICD10 Comment [facility] - 01 Comment:Z01.419 Performed by Comment [facility] - 01 Comment:Morenita Hill, Rolando totechnologist (ASCP) . . [facility] - 01 Note: Comment [facility] - 01 Comment: The Pap smear is a screening test designed to aid in the detection of premalignant and malignant conditions of the uterine cervix. It is not a diagnostic procedure and should not be used as the sole means of detecting cervical cancer. Both false-positive and false-negative reports do occur. Test methodology Comment [facility] - Comment: This liquid based ThinPrep(R) pap test was screened with the use of an image guided system. HPV Aptima Negative Negative [facility] 02 Comment: This nucleic acid amplification test detects fourteen high-risk HPV types (16,18,31,33,35,39,45,51,52,56,58,59,66,68) without differentiation. HPV Genotype Reflex Comment [facility] - 01 Comment:Criteria not met, HP V Genotype not performed. Thin prep 10/26/2023 10:4 2 AM PHOTOENGRAVING MACHINE OPERATOR/TENDER 10/26/2023 Narrative [facility] - 10/28/2023 6:08 PM PHOTOENGRAVING MACHINE OPERATOR/TENDER Performed at: - [facility] [id number] Automotive Maintenance Technician: Olga William MD, Phone: [phone] Performed at: 02 - [facility] [id number] Automotive Maintenance Technician: Olga William MD, Phone: [phone] Specimen Comment: No. of containers..01 ThinPrep Vial us Lia Vasquez MD LAB CYTOLOGY ORDERA BLES Final Result [facility] - 01 [facility] 02 * Screening Mammogram Bilateral W Jose Juan (09/04/2023 2:57 PM PHOTOENGRAVING MACHINE OPERATOR/TENDER) Anatomical Region Laterality Modality Breast Bilateral Mammography Narrative 09/07/2023 10:47 AM PHOTOENGRAVING MACHINE OPERATOR/TENDER Mammogram Technique: Bilateral Digital Breast Tomosynthesis, Bilateral C-view 2D Screening mammogram. Views obtained: bilateral craniocaudal and bilateral mediolateral oblique. Computer Aided Detection was performed. Mammogram Findings: No prior imaging studies are available for comparison. The breasts are heterogeneously dense, which may obscure small masses. There is a focal asymmetry in the middle upper outer quadrant of the left breast. Finding has questioned architectural distortion, best seen on MLO. There is no suspicious abnormality in the right breast. Impression: Focal asymmetry in the left breast requires additional evaluation. Diagnostic mammogram and possible ultrasound of the left breast are recommended at this time. OVERALL FINAL ASSESSMENT: BI-RADS CATEGORY 0: Incomplete: Need additional imaging evaluation. Procedure Note Maknena Chapa MD - 09/07/2023 Mammogram Technique: Bilateral Digital Breast Tomosynthesis, Bilateral C-view 2D Screening mammogram. Views obtained: bilateral craniocaudal and bilateral mediolateral oblique. Computer Aided Detection was performed. Mammogram Findings: No prior imaging studies are available for comparison. The breasts are heterogeneously dense, which may obscure small masses. There is a focal asymmetry in the middle upper outer quadrant of theleft breast. Finding has questioned architectural distortion, best seen on MLO. There is no suspicious abnormality in the right breast. Impression: Focal asymmetry in the left breast requires additional evaluation. Diagnostic mammogram and possible ultrasound of the left breast are recommended at this time. OVERALL FINAL ASSESSMENT: BI-RADS CATEGORY 0: Incomplete: Need additional imaging evaluation. us Self Screening Mammogram IMG MAMMO PROCEDURES Fi nal Result * Hepatitis C antibody (11/15/2021 8:35 AM PHOTOENGRAVING MACHINE OPERATOR/TENDER) Hep C Ab Nonreactive Nonreactive [facility] Comment:Antibodies to HCV no t detected. Does NOT exclude the possibility of recent exposure to HCV. Blood 11/15/2021 8:35 AM PHOTOENGRAVING MACHINE OPERATOR/TENDER 11/15/2021 8:44 AM PHOTOENGRAVING MACHINE OPERATOR/TENDER Lucille Haney MD LAB MICROBIOLOGY - GEN ERAL ORDERABLES Edited Result - Final [facility] Department [place] [address] from Last 3 Months or Most Recently Relevant to Health Maintenance Insurance [employer] [facility] CHOICE PLUS [employer] Member Subscriber Plan / Payer (Ef fective 2020-Present) Name:Halima Becerra Relation to Subscriber:Self Name:Halima Becerra Payer ID:[id number] (NA) Type:[facility] HMO/PPO Address: [address] [employer] Member Subscriber Plan / Payer (Ef fective 2020-Present) Name:Halima Becerra Relation to Subscriber:Self Name:Halima Becerra Payer ID:[id number] ([facility]) Type:[facility] HMO/PPO Address: [place] [id number] [place] [phone] Advance Directives For more information, please contact: [phone] * Full Code (Latest Code Status on File) Date Activated Date Inactivated Comments 03/22/2023 7:26 AM 03/22/2023 7:25 PM * Full Code Date Activated Date Inactivated Comments 04/30/2021 11:26 AM 05/01/2021 7:34 PM Care Teams Territory Account Representative Relationship Specialty Start Date End Date Asif Kang MD [address] [facility] [address] [place] [address] PCP - General Internal Medicine 02/10/23 Shonna Dupree PA [address] [facility], [facility] [address] [place] [address] Physician Prop Attendant Physician Prop Attendant 02/10/23
--- OUTSIDE RECORDS SUMMARY | 2025-02-04 13:14 | XMS_ITS | Clinical Summary ---
Author Organization [facility] Address [address] [place] [id number] Care Team Providers Care Computer Systems Security Administrator Name Role Phone Shonna Dupree Unavailable [phone] Asif Kang MD Primary Care Provider Allergies Active Allergy Reactions Criticality Noted Date [...] mouth daily 30 capsule 11 04/19/20 24 025 Active cyanocobalamin (Vitamin B-12) 1,000 mcg/mL injection [...] NAUSEA 9 tablet 2 12/03/19 25 025 Disconti nued(Reo rder) Hospital, Clinic, or Other Facility Administered Medication [...] 10/26/2023 Assessment & Plan (10/26/2023 10:40 AM LABEL STAMPER): To usg Syncope and collapse 03/22/2023 Assessment [...] dehydration. While she has exclusion criteria for [place] Syncope Risk Score or [place] Syncope Rule, there are several features of [...] kassy. Assessment & Plan (10/26/2023 10:40 AM LABEL STAMPER): Pap done. RTO 12m. I will send [...] tolerating CPAP. - Patient interested to see salad chef, referral for outpatient on discharge. Iron deficiency 10/27/2021 Assessment & Plan (10/27/2021 2:52 PM LABEL STAMPER): Likely 2/2 gastric bypass. No anemia. - Cont iron supplement, she will ensure she is getting 65mg every day elemental iron. - Needs recheck of iron and ferritin with next labs. Fibromyalgia 10/27/2021 Assessment & Plan (03/22/2023 1:00 PM CDT): Cont duloxetine. Assessment & Plan (10/27/2021 3:06 PM LABEL STAMPER): No e/o inflammatory arthritis on labs or imaging. Sx well controlled on duloxetine. Orthostasis 10/27/2021 Assessment & Plan (10/27/2021 3:19 PM LABEL STAMPER): Per pt orthostatics: laying down for 5 [...] 10/01/2022 Assessment & Plan (10/27/2021 3:05 PM LABEL STAMPER): F/b Dr. Partida. - Cont Adderall XR 20mg every day Chronic sacroiliac pain 12/30/2020 Recurrent major depressive disorder, in full rem ission 08/16/2020 CHAR (generalized anxiety disorder) 02/24/2020 Assessment & Plan (10/27/2021 3:05 PM LABEL STAMPER): Now f/b Dr. Partida. - Cont duloxetine [...] 10/04/2019 Assessment & Plan (10/04/2019 9:59 AM LABEL STAMPER): Recommend she start amytriptyline. ANDRADE diet and supplements discussed. Mixed conductive and sensori neural hearing loss of left ear with restricted hearing of right ear 10/04/2019 Tinnitus of both ears 09/07/2019 Assessment & Plan (09/07/2019 9:14 PM LABEL STAMPER): Given concurrent dizziness, will refer to ENT. [...] and narcotic delivery is not fast at [facility]. We will attempt to give a dose, and send a dose to her chosen pharmacy. She will see neurology in 5 days for a routine appointment, which is advantageous in the setting of recent concussion. Assessment & Plan (10/17/2019 5:49 PM LABEL STAMPER): Red flags of new onset after 35 [...] activity. Assessment & Plan (09/07/2019 9:18 PM LABEL STAMPER): Red flags of new onset after 35 [...] 09/07/2019 Assessment & Plan (09/07/2019 5:09 PM LABEL STAMPER): Stop-Bang is 1, but her daytime sleepiness [...] 10/27/19 Assessment & Plan (10/07/2020 9:08 PM LABEL STAMPER): With recent EKG showing RSR' in V1 [...] 03/22/22- staph - see results Morbid obesity ([facility]) 08/02/2020 Assessment & Plan (10/27/2021 3:04 PM LABEL STAMPER): Now with 73lbs of weight loss since [...] 10/17/20192021 Assessment & Plan (10/17/2019 5:51 PM LABEL STAMPER): Seen at and dx with bronchitis. No [...] 10/04/20192022 Assessment & Plan (10/04/2019 10:00 AM LABEL STAMPER): TM appears lateralized on exam. We discussed [...] 03/10/2022 Assessment & Plan (10/25/2021 11:38 AM LABEL STAMPER): - Depression screen: PHQ Screening - A1c: normal - Lipids: normal - Mammogram Discuss at 38 - Pap: 12/2017, WNL, hx of abnormals. F/b [facility]. - HIV: prev screened and negative - Hep C: screen today - Other STI screen: not indicated - Influenza: UTD 21- - Td/Tdap: likely UTD 2017. - HPV: not done - COVID booster UTD Routine health maintenance objectives discussed and orders placed for any outstanding screening studies as noted. Physical exam performed as above.Routine annual labs, if needed, have been ordered and will be reviewed with patient when results available. Assessment & Plan (09/05/2019 10:46 AM LABEL STAMPER): - Depression screen: PHQ Screening PHQ-2 Total [...] when results available. History of arthrodesis 07/09/201102/10 Encounters Date Type Department Care Team Description 02/02/2025 4:00 PM CDT Procedure visit [facility] General Neurology [address] [facility] 6th Floor [address] [place] [address] Filiberto Matos MD Intractable chronic migraine without aura and without status migrainosus (Primary Dx) 12/12/2024 9:00 AM CDT Office Visit [facility] Obstetrics and Gynecology [address] [facility] 7th Floor [address] [place] [phone] Makeda Jimenez MD Encounter for annual routine gynecological examination (Primary Dx); Abnormal mammogram; Encounter for routine checking of intrauterine contraceptive device (IUD); Mitral valve insufficiency, unspecified etiology; Mixed stress and urge urinary incontinence; CHAR (generalized anxiety disorder); Recurrent major depressive disorder, in full remission; Attention deficit hyperactivity disorder (ADHD), predominantly inattentive type; History of bariatric surgery; History of spinal fusion 11/21/2024 3:00 PM LABEL STAMPER Procedure visit [facility] Department of Psychiatry [address] [facility] [address] [place] [phone] MDD (major depressive disorder), recurrent severe, without psychosis (HCC) (Primary Dx) 11/14/2024 3:00 PM LABEL STAMPER Procedure visit [facility] Department of Psychiatry [address] [facility] [address] [place] [phone] MDD (major depressive disorder), recurrent severe, without psychosis (HCC) (Primary Dx) 11/11/2024 3:00 PM LABEL STAMPER Office Visit [facility] Department of Psychiatry [address] [facility] [address] [place] [phone] Jane Orosco MD Severe episode of recurrent major depressive disorder, without psychotic features (HCC) (Primary Dx) 11/11/2024 3:00 PM LABEL STAMPER Procedure visit [facility] Department of Psychiatry [address] [facility] [address] [place] [phone] MDD (major depressive disorder), recurrent severe, without psychosis (HCC) (Primary Dx) 11/11/2024 Orders Only [facility] General Neurology [address] [place] [phone] Raven Allen Intractable chronic migraine without aura and without status migrainosus (Primary Dx) 11/10/2024 4:00 PM LABEL STAMPER Procedure visit [facility] General Neurology [address] [place] [address] Filiberto Matos MD Intractable chronic migraine without aura and without status migrainosus (Primary Dx) 11/07/2024 3:00 PM LABEL STAMPER Procedure visit [facility] Department of Psychiatry [address] [facility] [address] [place] [phone] Severe episode of recurrent major depressive disorder, without psychotic features (HCC) [F33.2] (Primary Dx) from Last 3 Months Immunizations Immunization Administration Dates Next Due COVID-19 mRNA (Remotemedical) 0.3 m L (30 mcg) vaccine (12 years and up) 06/27/2024 Influenza, Trivalent, Cell C ulture-based MDCK, Preservative Free, Antibiotic Free, Intramuscular 06/27/2024 Influenza, Unspecified 06/28/2022 [facility] SARS-CoV-2 Monovalent Vaccination (12+ Yrs) SHIN-READY TO USE 10/17/2021 Pfizer SARS-CoV-2 Monovalent Vaccination (12+ Yrs) PURPLE 10/25/2020,10/06/2020 Surgical History Surgery Date Site/Laterality Comments TONSILLECTOMY 09/28/2010 - 09/27/2011 Bilateral SPINAL FUSION 09/28/2009 - 09/27/2010 N/A T4-L4 CHOLECYSTECTOMY 09/28/2007 - 09/27/2008 N/A TYMPANOPLASTY 09/28/1992 - 09/27/1993 Left BARIATRIC SURGERY 04/30/2021 N/A Gastric Sleeve ACHILLES TENDON REPAIR Right Medical History Medical History Date Comments Seasonal allergies Migraines 1997 Generalized anxiety disorder Incontinence Morbid obesity (HCC) Vitamin D deficiency 2019 Back injury ADHD (attention deficit hyperactivity disorder) Obstructive sleep apnea 07/2020 Doesnt u se CPAP Chronic heel pain 12/30/2020 Depression 1998 Frequent urinary tract infections 09/06/2020 03/22/22- staph - see results Achilles tendinitis of right lower extremity 11/01/2021 GERD (gastroesophageal reflu x disease) 2021 Tinnitus 3 OR MORE YEARS HL (hearing loss) 20 YEARS PLUS TMJ dysfunction 3 OR MORE YEARS-CLENCHING Dizziness 3 OR MORE YEARS Brain concussion 02/2023 and 06/2023 Family History Medical History Relation Name Comments ADD / ADHD Brother Gino Mental illness Brother Gino Substance Abuse Brother Gino Anxiety disorder Father Gino Arthritis Father Gino Atrial fibrillation Father Gino Cancer Father Gino Coronary artery disease Father Gino Depression Father Gino Diabetes Father Gino Hearing loss Father Gino Hypertension Father Gino Kidney cancer Father Gino Mental illness Father Gino Obesity Father Gino Sleep apnea Father Gino Snoring Father Gino Substance Abuse Father Gino Hyperlipidemia Father's Sister 1 Arina Hyperlipidemia Father's Sister 2 Arina Heart disease Maternal Grandmother Lauren Anemia Mother Sarina Anxiety disorder Mother Sarina Arthritis Mother Sarina Atrial fibrillation Mother Sarina Autoimmune disease Mother Sarina Depression Mother Sarina Hypertension Mother Sarina Mental illness Mother Sarina Obesity Mother Sarina Rheum arthritis Mother Sarina Sleep apnea Mother Sarina Sleep disorder Mother Sarina history of ac ting out dreams Snoring Mother Sarina Substance Abuse Mother Sarina spinal stenosis Mother Sarina Heart attack Paternal Grandfather Luis Heart disease Paternal Grandfather Luis Diabetes Paternal Grandmother Suni Heart disease Paternal Grandmother Suni ADD / ADHD Sister Irma Anxiety disorder Sister Irma Depression Sister Irma Mental illness Sister Irma Obesity Sister Irma Coffin-Siris Syndrome Son 1 Cem with l ow muscle tone, nail and hair abnormalities, SOX gene mutation Developmental delay Son 1 Cem Learning disabilities Son 1 Cem Depression Son 2 ADD / ADHD Son 3 Anxiety disorder Son 3 Depression Son 3 OCD Son 3 Developmental delay Son 4 Cem Learning disabilities Son 4 Cem Relation Name Status Comments Brother Gino Alive Father Gino Alive Father's Sister 1 Arina Father's Sister 2 Arina Alive Maternal Grandfather Maternal Grandmother Lauren Mother Sarina Alive Paternal Grandfather Luis Paternal Grandmother Suni Alive Sister Irma Alive Son 1 Cem Alive Son 2 Alive Son 3 Alive Son 4 Cem Alive Social History Tobacco Use Types Packs/Day Years [...] on file Legal Sex Female 8:08 AM LABEL STAMPER Gender Identity Female 07/29/2021 4:09 PM CDT Sexual Orientation Straight 09/01/2019 2: 23 PM LABEL STAMPER 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 Not on file Not on file Not on file Not on file Not on file Not on file Not on file Obstetrics History Para Term AB IAB SAB Ectopic Multiple Livin g Live Births 3 3 3 3 Date Outcome GA Total Labor Labor/2nd/3rd Weight Sex Type Anes PTL Maria Luz A1 A5 Name Clin Para Para Para Last Filed Vital Signs Vital Sign Reading [...] 12/12/2024 9:23 AM CDT Plan of Treatment Health Maintenance Due Date Last Done Comments DTaP/Tdap/Td Vaccine (1 - Tdap) 1994 Varicella Vaccines (1 of 2 - 13+ 2-dose series) 1996 Hepatitis B Screening 2001 Breast Cancer Screening-Mammogram 09/04/2024 09/04/2023 Cervical Cancer Screening 10/26/20242023, 03/10/2022, 09/06/2020 Depression Screening 10/26/2024 10/26/2023, 04/17/2022, 04/01/2022, Additional history exists Regular Well Visit/Exam 18-64 12/12/2025 12/12/2024, 10/26/2023, 03/10/2022, Additional history exists Hepatitis C Screening Completed 11/15/2021 Covid-19 Vaccine Completed 06/27/2024, , 10/25/2020, Additional history exists Influenza Vaccine Completed 06/27/2024, , 06/28/2022 HPV Vaccines Aged Out No longer eligi ble based on patient's age to complete this topic Pneumococcal vaccine <65 Aged Out No longer eligible based on patient's age to complete this topic Medical Devices Implanted Type Area Emt P Device Identifier Shelf Expiration Date Model / Serial / Lot Spinal Fusion Spine Thoracic [employer] Ar-1927bct Corkscrew Suturetape 5.5mm 14.7mm Bioabsorbable Full Thread 1.3mm - [id number] Implanted:Qty: 1 on 12/03/2021 by Clint Sanabria MD at [facility] Right: Achilles Tendon [employer] [id number] 12/26/2021 AR-1927BC T / / [id number] [employer] Ar-1927bct Corkscrew Suturetape 5.5mm 14.7mm Bioabsorbable Full Thread 1.3mm - [id number] Implanted:Qty: 1 on 12/03/2021 by Clint Sanabria MD at [facility] Right: Achilles Tendon [employer] [id number] 05/28/2022 AR-1927BC T / / Explanted Type Area Emt P Device Identifier Shelf Expiration Date Model / Serial / Lot [employer] [id number] Tamara .062in 9in Trocar Point One End Orthopedic Wire - [id number] Explanted:Qty: 1 on 12/03/2021 at [facility] Right: Achilles Tendon [employer] [id number] / / Procedures Procedure Name Priority Date/Time Associated Diagnosis Comments PAP AND HPV, REFLEX TO HPV GENOTYPES Routine 10/26/2023 10:42 AM LABEL STAMPER Well woman exam SCREENING MAMMOGRAM BILATERAL W JOSE JUAN Schedule Routine, Read Routine (OP Routine) 09/04/2023 2:57 PM LABEL STAMPER Screening mammogram, encounter for HEPATITIS C ANTIBODY Routine 11/15/2021 8:35 AM LABEL STAMPER Routine general medical examination at a health care facility from Last 3 Months or Most Recently Relevant to Health Maintenance Results * Pap and HPV, reflex to HPV Genotypes (10/26/2023 10:42 AM LABEL STAMPER) Clinical indication Comment [facility] - 01 Comment:NEGATIVE FOR INTRAEP ITHELIAL LESION OR MALIGNANCY. Specimen adequacy: Comment [facility] - 01 Comment: Satisfactory for evaluation. Endocervical and/or squamous metaplastic cells (endocervical component) are present. Clinician provided ICD10 Comment [facility] - 01 Comment:Z01.419 Performed by Comment [facility] - 01 Comment:Rolando Pérez totechnologist (ASCP) . . [facility] - 01 [...] do occur. Test methodology Comment [facility] - 01 Comment: This liquid based ThinPrep(R) pap test was screened with the use of an image guided system. HPV Aptima Negative Negative [facility] 02 Comment: This nucleic acid amplification test detects fourteen high-risk HPV types (16,18,31,33,35,39,45,51,52,56,58,59,66,68) without differentiation. HPV Genotype Reflex Comment [facility] - Comment:Criteria not met, HP V Genotype not performed. Thin prep 10/26/2023 10:4 2 AM LABEL STAMPER 10/26/2023 Narrative [facility] - 10/28/2023 6:08 PM LABEL STAMPER Performed at: - [address] [id number] Terminal Block Assembler: Olga William MD, Phone: [phone] Performed at: 02 - [address] [id number] Terminal Block Assembler: Olga William MD, Phone: [phone] Specimen Comment: No. of containers..01 ThinPrep Vial Lia Vasquez MD LAB CYTOLOGY ORDERA BLES Final [facility] - [facility] 02 * Screening Mammogram Bilateral W Jose Juan (09/04/2023 2:57 PM LABEL STAMPER) Anatomical Region Laterality Modality Breast Bilateral Mammography Narrative 09/07/2023 10:47 AM LABEL STAMPER Mammogram Technique: Bilateral Digital Breast Tomosynthesis, Bilateral [...] Incomplete: Need additional imaging evaluation. Procedure Note Makenna Chapa MD - 09/07/2023 Mammogram Technique: Bilateral [...] CATEGORY 0: Incomplete: Need additional imaging evaluation. Self Screening Mammogram IMG MAMMO PROCEDURES Fi nal Result * Hepatitis C antibody (11/15/2021 8:35 AM LABEL STAMPER) Hep C Ab Nonreactive Nonreactive [facility] Comment:Antibodies to HCV no t detected. Does NOT exclude the possibility of recent exposure to HCV. Blood 11/15/2021 8:35 AM LABEL STAMPER 11/15/2021 8:44 AM LABEL STAMPER Lucille Haney MD LAB MICROBIOLOGY - GEN ERAL ORDERABLES Edited Result - Final [facility] Department [place] [address] from Last 3 Months or Most Recently Relevant to Health Maintenance Insurance [employer] [place] [id number] [employer] [address] EMPLOYEES [employer] Advance Directives For more information, please contact: [phone] * Full Code (Latest Code Status on File) Date Activated Date Inactivated Comments 03/22/2023 7:26 AM 03/22/2023 7:25 PM * Full Code Date Activated Date Inactivated Comments 04/30/2021 11:26 AM 05/01/2021 7:34 PM Care Teams Computer Systems Security Administrator Relationship Specialty Start Date End Date Asif Kang MD [address] [facility] [address] [place] [address] PCP - General Internal Medicine 02/10/23 Shonna Dupree PA [address] [facility], [facility] [address] [place] [address] Physician Greens Planter Physician Greens Planter 02/10/23
--- OUTSIDE RECORDS SUMMARY | 2025-02-04 13:14 | XMS_ITS | Clinical Summary ---
Author Organization [facility] Address [address] [place] [address] Care Team Providers Care Montessori Paraprofessional Name Role Phone Unavailable Primary Care Provider Unavailabl e Source Comments [facility],non-owned Affiliates and Associated Physician Practices is amultiple site organization consisting of ambulatory clinics and hospital sitesin [place], [place], [place] and [place]. This disclosure is being madepursuant to the Care Everywhere program and may not contain all information available regarding this patient. Last updated 18.[facility] Social History Tobacco Use Types Packs/Day Years Used Date Smoking Tobacco: Never Assessed Comments Unknown Sex and Gender Information Value Date Recorded Sex Assigned at Not on file Legal Sex Female 8:40 AM CDT Gender Identity Not on file Sexual Orientation Not on file Plan of Treatment Health Maintenance Due Date Last Done Comments LIPID TESTING 1985 MAMMOGRAM 1983 PAP SMEAR 1983 HIV SCREENING 1998 HEPATITIS C SCREENING 08/23/2001 DTAP/TDAP/TD VACCINES (1 - Tdap) 2002 HEPATITIS B VACCINE (1 of 3 - 19+ 3-dose series) 2002 COVID-19 VACCINE ( - 2023-2 5 season) 2024 DEPRESSION SCREENING 09/28/2024 INFLUENZA VACCINE (Season Ended) 2025 ZOSTER VACCINE (1 of 2) 2033 HIB VACCINE Aged Out No longer eligi ble based on patient's age to complete this topic HPV VACCINE Aged Out No longer eligi ble based on patient's age to complete this topic MENINGOCOCCAL (Group B) VACC INE SHARED DECISION-MAKING Aged Out No longer eligibl e based on patient's age to complete this topic MENINGOCOCCAL GROUPS A/C/Y/W VACCINE Aged Out No longer eligible b ased on patient's age to complete this topic PNEUMOCOCCAL VACCINE Aged Out No long er eligible based on patient's age to complete this topic Insurance [facility]
--- OUTSIDE RECORDS SUMMARY | 2025-02-04 13:14 | XMS_ITS ---
Author Organization [facility] Address [address] [place] [address] Care Team Providers Care Occupational Health Nurse Manager Name Role Phone Nisa Lozada Primary Care Provider Medications Medication SIG (Take, Route, Fr equency, Duration) Notes Start Date End Date Status ZEPBOUND 5 mg/0.5 mL as directed subcuta neously once a week Unknown VYVANSE 40 mg TAKE 1 CAPSULE (40 M G TOTAL) BY MOUTH EVERY MORNING. for 30 Days Unknown OMEPRAZOLE 40 mg 1 cap(s) orally once a day Unknown CYMBALTA 6 MG Unknown DODEX 1000 mcg/mL inject 1000 mcg subc utaneously once weekly for 90 days 02/09/2024 Unknown Encounters Encounter Location Date Provider Diagnosis [facility] - Nisa Lozada [address] [place] [address] 07/15/2024 Nisa Lozada Plan Of Treatment No Information Progress Notes * Cain MARSHALLOB:[birth year] (39 yo F)Acc No.[id number]:07/15/2024 Progress Notes Patient: Halima NATHAN Provider: Esther Lozada MD :1985 A ge:38 Y S ex:Female Date:07/15/2024 Phone: Address:[place]-[id number] Subjective: * Chief Complaints: * * HPI: I nterval Hx: 38 yo female calls in to initiate telehealth visit to discuss progress and management of autoimmune thyroiditis, weight management/obesity. Verbal consent provided by patient to proceed with this visit. This visit was performed in office via provider and patient located in primary care office with real time audio with video. at last visit in April we continued thyroid support and zepbound 5 mg weekly for weight management. * Medical History: * Medications: U nknown ZEPBOUND 5 mg/0.5 mL solution as directed subcutaneously once a week , Unknown OMEPRAZOLE 40 mg delayed release capsule 1 cap(s) orally once a day , Unknown CYMBALTA , Notes to Pharmacist: 6 MG, Unknown DODEX 1000 mcg/mL solution inject 1000 mcg subcutaneously once weekly , Unknown VYVANSE 40 mg capsule TAKE 1 CAPSULE (40 MG TOTAL) BY MOUTH EVERY MORNING. Objective: * Vitals: Assessment: Plan: * Treatment: * Billing Information: * Visit Code: * Procedure Codes: * Electronic signature of Ruben Lozada MD on 02/04/2025 at 01:14 PM CDT Sign off status: Pending * Provider: Esther Lozada MD Date: Generated for Joaquín de anda/Emerald/eTransmitting on: 0 02/04/2025 01:14 PM CDT History and Physical Notes * HPI (History of Present Illness) Category Sub-Category Detail Notes Category Not es Interval Hx 38 yo female calls in to initiate telehealth visit to discuss progress and management of autoimmune thyroiditis, weight management/obesity. Verbal consent provided by patient to proceed with this visit. This visit was performed in office via provider and patient located in primary care office with real time audio with video. at last visit in April we continued thyroid support and zepbound 5 mg weekly for weight management.
--- OUTSIDE RECORDS SUMMARY | 2025-02-04 13:14 | XMS_ITS ---
Author Organization [facility] Address [address] [place] [address] Care Team Providers Care Popcorn Candy Maker Name Role Phone Nisa Lozada Primary Care Provider Migration, Provider Unavailable Unavailable REASON FOR VISIT Multum To Medispan Conversion Encounter Medications Medication SIG (Take, Route, Frequency, Duration) Notes Start Date End Date Status Vyvanse 40 MG TAKE 1 CAPSULE (40 M G TOTAL) BY MOUTH EVERY MORNING. for 30 Days Unknown Cymbalta 6 MG *Please review and pick correct strength-formulati on from Medispan options. If intended option is not shown, discontinue and re-order from Quick Search* Unknown Dodex 1000 MCG/ML inject 1000 mcg subcutaneously once weekly for 90 days 02/09/2024 Unknown Zepbound 5 MG/0.5ML as directed subcutaneously once a week Unknown Omeprazole 40 MG 1 cap(s) orally once a day Unknown Encounters Encounter Location Date Provider Diagnosis [facility] [address] [place] [address] 08/13/2024 Provider Migration Plan Of Treatment No Information Progress Notes * LISAANABELLEMARS NolbertoRejiOB:[birth year] (39 yo F)Acc No.[id number]:08/13/2024 Patient: Halima NATHAN Provider: Mino nolen Migration :1985 A ge:38 Y S ex:Female Date:08/13/2024 Phone: Address:[id number] Pcp:Nisa Lozada Subjective: * Chief Complaints: * 1 . Multum To Medispan Conversion Encounter. * Medical History: * Medications: U nknown Zepbound(Tirzepatide-Weight Management) 5 MG/0.5ML Solution as directed subcutaneously once a week , Unknown Omeprazole 40 MG Capsule Delayed Release 1 cap(s) orally once a day , Unknown Cymbalta , Notes to Pharmacist: 6 MG *Please review and pick correct [facility]. If intended option is not shown, discontinue and re-order from Quick Search*, Unknown Dodex 1000 MCG/ML Solution inject 1000 mcg subcutaneously once weekly , Unknown Vyvanse(Lisdexamfetamine Dimesylate) 40 MG Capsule TAKE 1 CAPSULE (40 MG TOTAL) BY MOUTH EVERY MORNING. Objective: * Vitals: Assessment: Plan: * Treatment: * Billing Information: * Visit Code: * Procedure Codes: * Electronic signature of Prov chris Migration on 02/04/2025 at 01:13 PM CDT Sign off status: Pending * Provider: Mino nolen Migration Date: 10/13/2023 Generated for Joaquín de anda/Emerald/Tameka on: 0 02/04/2025 01:13 PM CDT
[2025-02-04 13:34] VITALS: BP 113/74; PULSE 86; RESP 16; TEMP 36.6; O2SAT 100
--- OUTSIDE RECORDS SUMMARY | 2025-02-04 15:59 | XMS_ITS | Referral Summary ---
Author Organization [facility] Address [address] [place] [address] Care Team Providers Care Scrap Separator Name Role Phone Shonna Dupree Unavailable [phone] Asif Kang MD Primary Care Provider Encounters Date Type Department Care Team Description 02/02/2025 4:00 PM CDT Procedure visit [facility] [address] [facility] 6th Floor [address] [place] [address] Filiberto Matos MD Intractable chronic migraine without aura and without status migrainosus (Primary Dx) 12/12/2024 9:00 AM CDT Office Visit [facility] [address] [facility] 7th [address] [place] [address] Makeda Jimenez MD Encounter for [...] History of spinal fusion 11/21/2024 3:00 PM PRODUCTION SUPERVISOR TRAINEE Procedure visit 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 [address] [place] [address] [place] [phone] Raven Allen Intractable chronic migraine without aura and without status migrainosus (Primary Dx) 11/11/2024 3:00 PM PRODUCTION SUPERVISOR TRAINEE Office Visit [facility] [address] [place] [phone] Jane Orosco MD Severe episode of recurrent major depressive disorder, without psychotic features (HCC) (Primary Dx) 11/11/2024 3:00 PM PRODUCTION SUPERVISOR TRAINEE Procedure visit 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 [address] [place] [phone] Filiberto Matos MD Intractable chronic migraine without aura and without status migrainosus (Primary Dx) 11/07/2024 3:00 PM PRODUCTION SUPERVISOR TRAINEE Procedure visit [facility] [address] [place] [phone] Severe episode of recurrent major depressive disorder, [...] 10/26/2023 Assessment & Plan (10/26/2023 10:40 AM PRODUCTION SUPERVISOR TRAINEE): To usg Syncope and collapse 03/22/2023 Assessment [...] dehydration. While she has exclusion criteria for [place] Syncope Risk Score or [place] Syncope Rule, there are several features of [...] kassy. Assessment & Plan (10/26/2023 10:40 AM PRODUCTION SUPERVISOR TRAINEE): Pap done. RTO 12m. I will send [...] tolerating CPAP. - Patient interested to see call center analyst, referral for outpatient on discharge. Iron deficiency 10/27/2021 Assessment & Plan (10/27/2021 2:52 PM PRODUCTION SUPERVISOR TRAINEE): Likely 2/2 gastric bypass. No anemia. - Cont iron supplement, she will ensure she is getting 65mg every day elemental iron. - Needs recheck of iron and ferritin with next labs. Fibromyalgia 10/27/2021 Assessment & Plan (03/22/2023 1:00 PM CDT): Cont duloxetine. Assessment & Plan (10/27/2021 3:06 PM PRODUCTION SUPERVISOR TRAINEE): No e/o inflammatory arthritis on labs or imaging. Sx well controlled on duloxetine. Orthostasis 10/27/2021 Assessment & Plan (10/27/2021 3:19 PM PRODUCTION SUPERVISOR TRAINEE): Per pt orthostatics: laying down for 5 [...] 10/01/2022 Assessment & Plan (10/27/2021 3:05 PM PRODUCTION SUPERVISOR TRAINEE): F/b Dr. Partida. - Cont Adderall XR 20mg every day Chronic sacroiliac pain 12/30/2020 Recurrent major depressive disorder, in full rem ission 08/16/2020 CHAR (generalized anxiety disorder) 02/24/2020 Assessment & Plan (10/27/2021 3:05 PM PRODUCTION SUPERVISOR TRAINEE): Now f/b Dr. Partida. - Cont duloxetine [...] 10/04/2019 Assessment & Plan (10/04/2019 9:59 AM PRODUCTION SUPERVISOR TRAINEE): Recommend she start amytriptyline. ANDRADE diet and supplements discussed. Mixed conductive and sensori neural hearing loss of left ear with restricted hearing of right ear 10/04/2019 Tinnitus of both ears 09/07/2019 Assessment & Plan (09/07/2019 9:14 PM PRODUCTION SUPERVISOR TRAINEE): Given concurrent dizziness, will refer to ENT. [...] and narcotic delivery is not fast at [facility]. We will attempt to give a dose, and send a dose to her chosen pharmacy. She will see neurology in 5 days for a routine appointment, which is advantageous in the setting of recent concussion. Assessment & Plan (10/17/2019 5:49 PM PRODUCTION SUPERVISOR TRAINEE): Red flags of new onset after 35 [...] activity. Assessment & Plan (09/07/2019 9:18 PM PRODUCTION SUPERVISOR TRAINEE): Red flags of new onset after 35 [...] 09/07/2019 Assessment & Plan (09/07/2019 5:09 PM PRODUCTION SUPERVISOR TRAINEE): Stop-Bang is 1, but her daytime sleepiness [...] 10/27/19 Assessment & Plan (10/07/2020 9:08 PM PRODUCTION SUPERVISOR TRAINEE): With recent EKG showing RSR' in V1 and low voltages. Suspect this is a variant of normal and DOWLNIG is due to deconditioning, but will eval for cardiopulmonary etiologies. She has no risk factors for CV disease save for obesity and a minimal smoking history (quit in 2007). Recent CBC without e/o anemia - Red flag sx discussed and she will present to ED if these occur Frequent urinary tract infections 09/06/2020 02/10/2023 Overview (03/22/2022): 03/22/22- staph - see results Morbid obesity (CMS/[facility]) 08/02/2020 Assessment & Plan (10/27/2021 3:04 PM PRODUCTION SUPERVISOR TRAINEE): Now with 73lbs of weight loss since [...] 10/17/20192021 Assessment & Plan (10/17/2019 5:51 PM PRODUCTION SUPERVISOR TRAINEE): Seen at and dx with bronchitis. No [...] 10/04/20192022 Assessment & Plan (10/04/2019 10:00 AM PRODUCTION SUPERVISOR TRAINEE): TM appears lateralized on exam. We discussed [...] 03/10/2022 Assessment & Plan (10/25/2021 11:38 AM PRODUCTION SUPERVISOR TRAINEE): - Depression screen: PHQ Screening - A1c: [...] available. Assessment & Plan (09/05/2019 10:46 AM PRODUCTION SUPERVISOR TRAINEE): - Depression screen: PHQ Screening PHQ-2 Total [...] Immunization Administration Dates Next Due COVID-19 mRNA (EduKart) 0.3 m L (30 mcg) vaccine (12 years and up) 06/27/2024 Influenza, Trivalent, Cell C ulture-based MDCK, Preservative Free, Antibiotic Free, Intramuscular 06/27/2024 Influenza, Unspecified 06/28/2022 BehavioSec SARS-CoV-2 Monovalent Vaccination (12+ Yrs) SHIN-READY TO [...] on file Legal Sex Female 8:08 AM PRODUCTION SUPERVISOR TRAINEE Gender Identity Female 07/29/2021 4:09 PM CDT Sexual Orientation Straight 09/01/2019 2: 23 PM PRODUCTION SUPERVISOR TRAINEE 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 file Not on file [...] on file Medical Devices Implanted Type Area Trestleman Device Identifier Shelf Expiration Date Model / Serial / Lot Spinal Fusion Spine Thoracic [employer] Ar-1927bct Corkscrew Suturetape 5.5mm 14.7mm Bioabsorbable Full Thread 1.3mm - [id number] Implanted:Qty: 1 on 12/03/2021 by Clint Sanabria MD at [facility] Right: Achilles Tendon [employer] [id number] 12/26/2021 AR-1927BC T / / [id number] [employer] Ar-1927bct Corkscrew Suturetape 5.5mm 14.7mm Bioabsorbable Full Thread 1.3mm - [id number] Implanted:Qty: 1 on 12/03/2021 by Clint Sanabria MD at [facility] Right: Achilles Tendon [employer] [id number] 05/28/2022 AR-1927BC T / / Explanted Type Area Trestleman Device Identifier Shelf Expiration Date Model / Serial / Lot [employer] [id number] Tamara .062in 9in Trocar Point One End Orthopedic Wire - [id number] Explanted:Qty: 1 on 12/03/2021 at [facility] Right: Achilles Tendon [employer] [id number] / / Procedures Procedure Name Priority Date/Time Associated Diagnosis Comments PAP AND HPV, REFLEX TO HPV GENOTYPES Routine 10/26/2023 10:42 AM PRODUCTION SUPERVISOR TRAINEE Well woman exam SCREENING MAMMOGRAM BILATERAL W JOSE JUAN Schedule Routine, Read Routine (OP Routine) 09/04/2023 2:57 PM PRODUCTION SUPERVISOR TRAINEE Screening mammogram, encounter for HEPATITIS C ANTIBODY Routine 11/15/2021 8:35 AM PRODUCTION SUPERVISOR TRAINEE Routine general medical examination at a health care facility from Last 3 Months or Most Recently Relevant to Health Maintenance Results * Pap and HPV, reflex to HPV Genotypes (10/26/2023 10:42 AM PRODUCTION SUPERVISOR TRAINEE) Clinical indication Comment [facility] - 01 Comment:NEGATIVE [...] performed. Thin prep 10/26/2023 10:4 2 AM PRODUCTION SUPERVISOR TRAINEE 10/26/2023 Narrative [facility] - 10/28/2023 6:08 PM PRODUCTION SUPERVISOR TRAINEE Performed at: - [address] [id number] Client Partner: Olga William MD, Phone: [phone] Performed at: 02 - [facility] [id number] Client Partner: Olga William MD, Phone: [phone] Specimen Comment: No. of containers..01 ThinPrep Vial us Lia Vasquez MD LAB CYTOLOGY ORDERA BLES Final [facility] - 01 LAB DEEPA 02 * Screening Mammogram Bilateral W Jose Juan (09/04/2023 2:57 PM PRODUCTION SUPERVISOR TRAINEE) Anatomical Region Laterality Modality Breast Bilateral Mammography Narrative 09/07/2023 10:47 AM PRODUCTION SUPERVISOR TRAINEE Mammogram Technique: Bilateral Digital Breast Tomosynthesis, Bilateral [...] * Hepatitis C antibody (11/15/2021 8:35 AM PRODUCTION SUPERVISOR TRAINEE) Hep C Ab Nonreactive Nonreactive [facility] Comment:Antibodies to HCV no t detected. Does NOT exclude the possibility of recent exposure to HCV. Blood 11/15/2021 8:35 AM PRODUCTION SUPERVISOR TRAINEE 11/15/2021 8:44 AM PRODUCTION SUPERVISOR TRAINEE Lucille Haney MD LAB MICROBIOLOGY - GEN ERAL ORDERABLES Edited Result - Final [facility] Department of [place] [address] from Last 3 Months or Most Recently Relevant to Health Maintenance Insurance [employer] [facility] CHOICE PLUS [employer] Member Subscriber Plan / Payer (Ef fective 2020-Present) Name:Halima Becerra Relation to Subscriber:Self Name:Halima Becerra Payer ID:[id number] (NA) Type:[facility] HMO/PPO Address: [address] [employer] Member Subscriber Plan / Payer (Ef fective 2020-Present) Name:Halima Becerra Relation to Subscriber:Self Name:Halima Becerra Payer ID:[id number] ([facility]) Type:[facility] HMO/PPO Address: [place] [id number] [place] [id number] Advance Directives For more information, please contact: [phone] * Full Code (Latest Code Status on File) Date Activated Date Inactivated Comments 03/22/2023 7:26 AM 03/22/2023 7:25 PM * Full Code Date Activated Date Inactivated Comments 04/30/2021 11:26 AM 05/01/2021 7:34 PM Care Teams Scrap Separator Relationship Specialty Start Date End Date Asif Kang MD [address] [facility] [address] [place] [address] PCP - General Internal Medicine 02/10/23 Shonna Dupree PA [address] [facility] GENER[facility], [facility] [address] [place] [address] Physician Salvage Cutter Physician Salvage Cutter 02/10/23
--- OUTSIDE RECORDS SUMMARY | 2025-02-04 15:59 | XMS_ITS | Continuity of Care Document ---
Author Organization [facility] Address [address] [place] [address] Phone Care Team Providers Care Network/Telecom Engineer Name Role Phone Larry PT,MPT,ATC, Andrew Unavailable Unavai lable Procedures Procedure Date Therapeutic Activities Neuromuscular Re-Ed Manual Therapy Therapeutic Activities Manual Therapy Neuromuscular Re-Ed Neuromuscular Re-Ed Therapeutic Activities Therapeutic Exercise Therapeutic Exercise Therapeutic Activities Neuromuscular Re-Ed Therapeutic Activities Neuromuscular Re-Ed Therapeutic Exercise Therapeutic Activities Neuromuscular Re-Ed Therapeutic Exercise Neuromuscular Re-Ed Therapeutic Activities Therapeutic Exercise Manual Therapy Neuromuscular Re-Ed PT Evaluation Moderate Complexity Therapeutic Activities Advance Directives Directive Yes / No Effective Date File Name No Information Encounters Encounter Description Practice Location Reason(s) For Visit Diagnoses Date Provider Providers Copied on Encounter [facility], [address], [place], [place], [id number], tel:[phone] [place] No Information Larry Muniz , [place], [place]. [facility], [place], [place], [id number], [place] tel:[phone] [place] No Information 2 Larry Muniz , [place], [place]. Referring Provider: Clint Sanabria, [address], [place], [address]. tel:[phone] [place], [place] [address], [place], [place], [id number], [place] tel:[phone] [place] No Information 2 Josejulissa Den. . Referring Provider: Clint Sanabria, [address], [place], [address]. tel:[phone] [place], [place] [address] [address], [place], [place], [id number], [place] tel:[phone] [place] No Information 2 Larry Muniz , [place], [place]. Referring Provider: Clint Sanabria, [address], [place], [address]. tel:[phone] [place], [place] [id number] [address], [place], [place], [id number], [place] tel:[phone] [place] No Information 2 Larry Muniz , [place], [place]. Referring Provider: Clint Sanabria, [address], [place], [address]. tel:[phone] [place], [place] [id number] [address], [place], [place], [id number], [place] tel:[phone] [place] No Information 2 Larry Muniz , [place], [place]. Referring Provider: Clint Sanabria, [address], [place], [address]. tel:[phone] [facility], [place], [place], [id number], [place] tel:[phone] [place] No Information 2 Short Zaynab. . Referring Provider: Clint Sanabria, [address], [place], [address]. tel:[phone] [facility], [address], [place], [place], [id number], tel:[phone] [place] No Information 2 [facility]. Referring Provider: Clint Sanabria, [address], [place], [address]. tel:[phone] [facility] [address], [place], [place], [id number], tel:[phone] [place] No Information 2 [place], [place], . Referring Provider: Clint Sanabria, [address], [place], [address]. tel:[phone] Family History Family Member Type Diagnosis Age At Onset No Information Payers Payer name Insurance type Covered democrat ID [facility] dangelorosario(s) [facility] CI [id number] Social History Type Description Quantity Date Captured [...]
--- OUTSIDE RECORDS SUMMARY | 2025-02-04 15:59 | XMS_ITS | Clinical Summary ---
Author Organization [facility] Address [address] [place] [address] Care Team Providers Care Cloth Bin Packer Name Role Phone Unavailable Primary Care Provider Unavailabl e Source Comments [facility],non-owned Affiliates and Associated Physician Practices is amultiple site organization consisting of ambulatory clinics and hospital sitesin [place], [place], [place] and [place]. This disclosure is being madepursuant to the Care Everywhere program and may not contain all information available regarding this patient. Last updated 18.[facility] Social History Tobacco Use Types Packs/Day Years [...] patient's age to complete this topic Insurance [facility]
--- OUTSIDE RECORDS SUMMARY | 2025-02-04 15:59 | XMS_ITS | Clinical Summary ---
Author Organization [facility] Address [address] [place] [id number] Care Team Providers Care Patient Clerical Assistant Name Role Phone Shonna Dupree Unavailable [phone] Asif Kang MD Primary Care Provider Allergies [...] 10/26/2023 Assessment & Plan (10/26/2023 10:40 AM AFTER SCHOOL PROGRAM DIRECTOR): To usg Syncope and collapse 03/22/2023 Assessment [...] dehydration. While she has exclusion criteria for [place] Syncope Risk Score or Mcdonough Syncope Rule, there are several features of [...] kassy. Assessment & Plan (10/26/2023 10:40 AM AFTER SCHOOL PROGRAM DIRECTOR): Pap done. RTO 12m. I will send [...] tolerating CPAP. - Patient interested to see continuous pickling line pickler, referral for outpatient on discharge. Iron deficiency 10/27/2021 Assessment & Plan (10/27/2021 2:52 PM AFTER SCHOOL PROGRAM DIRECTOR): Likely 2/2 gastric bypass. No anemia. - Cont iron supplement, she will ensure she is getting 65mg every day elemental iron. - Needs recheck of iron and ferritin with next labs. Fibromyalgia 10/27/2021 Assessment & Plan (03/22/2023 1:00 PM CDT): Cont duloxetine. Assessment & Plan (10/27/2021 3:06 PM AFTER SCHOOL PROGRAM DIRECTOR): No e/o inflammatory arthritis on labs or imaging. Sx well controlled on duloxetine. Orthostasis 10/27/2021 Assessment & Plan (10/27/2021 3:19 PM AFTER SCHOOL PROGRAM DIRECTOR): Per pt orthostatics: laying down for 5 [...] 10/01/2022 Assessment & Plan (10/27/2021 3:05 PM AFTER SCHOOL PROGRAM DIRECTOR): F/b Dr. Partida. - Cont Adderall XR 20mg every day Chronic sacroiliac pain 12/30/2020 Recurrent major depressive disorder, in full rem ission 08/16/2020 CHAR (generalized anxiety disorder) 02/24/2020 Assessment & Plan (10/27/2021 3:05 PM AFTER SCHOOL PROGRAM DIRECTOR): Now f/b Dr. Partida. - Cont duloxetine [...] 10/04/2019 Assessment & Plan (10/04/2019 9:59 AM AFTER SCHOOL PROGRAM DIRECTOR): Recommend she start amytriptyline. ANDRADE diet and supplements discussed. Mixed conductive and sensori neural hearing loss of left ear with restricted hearing of right ear 10/04/2019 Tinnitus of both ears 09/07/2019 Assessment & Plan (09/07/2019 9:14 PM AFTER SCHOOL PROGRAM DIRECTOR): Given concurrent dizziness, will refer to ENT. [...] and narcotic delivery is not fast at [facility]. We will attempt to give a dose, and send a dose to her chosen pharmacy. She will see neurology in 5 days for a routine appointment, which is advantageous in the setting of recent concussion. Assessment & Plan (10/17/2019 5:49 PM AFTER SCHOOL PROGRAM DIRECTOR): Red flags of new onset after 35 [...] activity. Assessment & Plan (09/07/2019 9:18 PM AFTER SCHOOL PROGRAM DIRECTOR): Red flags of new onset after 35 [...] 09/07/2019 Assessment & Plan (09/07/2019 5:09 PM AFTER SCHOOL PROGRAM DIRECTOR): Stop-Bang is 1, but her daytime sleepiness [...] 10/27/19 Assessment & Plan (10/07/2020 9:08 PM AFTER SCHOOL PROGRAM DIRECTOR): With recent EKG showing RSR' in V1 [...] 03/22/22- staph - see results Morbid obesity ([facility]) 08/02/2020 Assessment & Plan (10/27/2021 3:04 PM AFTER SCHOOL PROGRAM DIRECTOR): Now with 73lbs of weight loss since [...] 10/17/20192021 Assessment & Plan (10/17/2019 5:51 PM AFTER SCHOOL PROGRAM DIRECTOR): Seen at and dx with bronchitis. No [...] 10/04/20192022 Assessment & Plan (10/04/2019 10:00 AM AFTER SCHOOL PROGRAM DIRECTOR): TM appears lateralized on exam. We discussed [...] 03/10/2022 Assessment & Plan (10/25/2021 11:38 AM AFTER SCHOOL PROGRAM DIRECTOR): - Depression screen: PHQ Screening - A1c: [...] available. Assessment & Plan (09/05/2019 10:46 AM AFTER SCHOOL PROGRAM DIRECTOR): - Depression screen: PHQ Screening PHQ-2 Total [...] 02/02/2025 4:00 PM CDT Procedure visit [facility] [address] [facility] 6th Floor [address] [place] [address] Filiberto Matos MD Intractable chronic migraine without aura and without status migrainosus (Primary Dx) 12/12/2024 9:00 AM CDT Office Visit [facility] [address] [facility] 7th Floor [address] [place] [phone] Makeda Jimenez MD Encounter for annual routine gynecological examination (Primary Dx); Abnormal mammogram; Encounter for routine checking of intrauterine contraceptive device (IUD); Mitral valve insufficiency, unspecified etiology; Mixed stress and urge urinary incontinence; CHAR (generalized anxiety disorder); Recurrent major depressive disorder, in full remission; Attention deficit hyperactivity disorder (ADHD), predominantly inattentive type; History of bariatric surgery; History of spinal fusion 11/21/2024 3:00 PM AFTER SCHOOL PROGRAM DIRECTOR Procedure visit [facility] Department of [facility] [address] [facility] [address] [place] [phone] MDD (major depressive disorder), recurrent severe, without psychosis (HCC) (Primary Dx) 11/14/2024 3:00 PM AFTER SCHOOL PROGRAM DIRECTOR Procedure visit [facility] [address] [facility] [address] [place] [phone] MDD (major depressive disorder), recurrent severe, without psychosis (HCC) (Primary Dx) 11/11/2024 3:00 PM AFTER SCHOOL PROGRAM DIRECTOR Office Visit [facility] [address] [facility] [address] [place] [phone] Jane Orosco MD Severe episode of recurrent major depressive disorder, without psychotic features (HCC) (Primary Dx) 11/11/2024 3:00 PM AFTER SCHOOL PROGRAM DIRECTOR Procedure visit [facility] [address] [facility] [address] [place] [phone] MDD (major depressive disorder), recurrent severe, without psychosis (HCC) (Primary Dx) 11/11/2024 Orders Only [facility] [address] [place] [phone] Raven Allen Intractable chronic migraine without aura and without status migrainosus (Primary Dx) 11/10/2024 4:00 PM AFTER SCHOOL PROGRAM DIRECTOR Procedure visit [facility] [address] [place] [address] Filiberto Matos MD Intractable chronic migraine without aura and without status migrainosus (Primary Dx) 11/07/2024 3:00 PM AFTER SCHOOL PROGRAM DIRECTOR Procedure visit [facility] [address] [facility] [address] [place] [phone] Severe episode of recurrent major depressive disorder, without psychotic features (HCC) [F33.2] (Primary Dx) from Last 3 Months Immunizations Immunization Administration Dates Next Due COVID-19 mRNA (Hero [employer] AS) 0.3 m L (30 mcg) vaccine (12 years and up) 06/27/2024 Influenza, Trivalent, Cell C ulture-based MDCK, Preservative Free, Antibiotic Free, Intramuscular 06/27/2024 Influenza, Unspecified 06/28/2022 RealScout SARS-CoV-2 Monovalent Vaccination (12+ Yrs) SHIN-READY TO [...] on file Legal Sex Female 8:08 AM AFTER SCHOOL PROGRAM DIRECTOR Gender Identity Female 07/29/2021 4:09 PM CDT Sexual Orientation Straight 09/01/2019 2: 23 PM AFTER SCHOOL PROGRAM DIRECTOR 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 Not on file Not on file Not [...] this topic Medical Devices Implanted Type Area Music Department Chair Device Identifier Shelf Expiration Date Model / Serial / Lot Spinal Fusion Spine Thoracic [employer] Ar-1927bct Corkscrew Suturetape 5.5mm 14.7mm Bioabsorbable Full Thread 1.3mm - [id number] Implanted:Qty: 1 on 12/03/2021 by Clint Sanabria MD at [facility] Right: Achilles Tendon [employer] [id number] 12/26/2021 AR-1927BC T / / [id number] [employer] Ar-1927bct Corkscrew Suturetape 5.5mm 14.7mm Bioabsorbable Full Thread 1.3mm - [id number] Implanted:Qty: 1 on 12/03/2021 by Clint Sanabria MD at [facility] Right: Achilles Tendon [employer] [id number] 05/28/2022 AR-1927BC T / / Explanted Type Area Music Department Chair Device Identifier Shelf Expiration Date Model / Serial / Lot [employer] [id number] Tamara .062in 9in Trocar Point One End Orthopedic Wire - [id number] Explanted:Qty: 1 on 12/03/2021 at [facility] Right: Achilles Tendon [employer] [id number] / / Procedures Procedure Name Priority Date/Time Associated Diagnosis Comments PAP AND HPV, REFLEX TO HPV GENOTYPES Routine 10/26/2023 10:42 AM AFTER SCHOOL PROGRAM DIRECTOR Well woman exam SCREENING MAMMOGRAM BILATERAL W JOSE JUAN Schedule Routine, Read Routine (OP Routine) 09/04/2023 2:57 PM AFTER SCHOOL PROGRAM DIRECTOR Screening mammogram, encounter for HEPATITIS C ANTIBODY Routine 11/15/2021 8:35 AM AFTER SCHOOL PROGRAM DIRECTOR Routine general medical examination at a health care facility from Last 3 Months or Most Recently Relevant to Health Maintenance Results * Pap and HPV, reflex to HPV Genotypes (10/26/2023 10:42 AM AFTER SCHOOL PROGRAM DIRECTOR) Clinical indication Comment [facility] - 01 Comment:NEGATIVE [...] performed. Thin prep 10/26/2023 10:4 2 AM AFTER SCHOOL PROGRAM DIRECTOR 10/26/2023 Narrative [facility] - 10/28/2023 6:08 PM AFTER SCHOOL PROGRAM DIRECTOR Performed at: - Lab[address] [id number] [place] [employer] [place] [employer] Hand: Olga William MD, Phone: [phone] Performed at: 02 - [address] [id number] [place] [employer] [place] [employer] Hand: Olga William MD, Phone: [phone] Specimen Comment: No. of containers..01 ThinPrep Vial Lia Vasquez MD LAB CYTOLOGY ORDERA BLES Final [facility] - LAB DEEPA 02 * Screening Mammogram Bilateral W Jose Juan (09/04/2023 2:57 PM AFTER SCHOOL PROGRAM DIRECTOR) Anatomical Region Laterality Modality Breast Bilateral Mammography Narrative 09/07/2023 10:47 AM AFTER SCHOOL PROGRAM DIRECTOR Mammogram Technique: Bilateral Digital Breast Tomosynthesis, Bilateral [...] * Hepatitis C antibody (11/15/2021 8:35 AM AFTER SCHOOL PROGRAM DIRECTOR) Hep C Ab Nonreactive Nonreactive [facility] Comment:Antibodies to HCV no t detected. Does NOT exclude the possibility of recent exposure to HCV. Blood 11/15/2021 8:35 AM AFTER SCHOOL PROGRAM DIRECTOR 11/15/2021 8:44 AM AFTER SCHOOL PROGRAM DIRECTOR Lucille Haney MD LAB MICROBIOLOGY - GEN ERAL ORDERABLES Edited Result - Final [facility] Department [place] [address] from Last 3 Months or Most Recently Relevant to Health Maintenance Insurance [facility] [employer] [facility] [employer]O Address: [address] [address] [place] [address] [employer] [facility] CHOICE PLUS [facility] [employer]PPO Address: [address] EMPLOYEES [employer] [employer]/PPO Address: [address] [address] [place] [address] [facility] [employer] [employer] [facility] [employer]O Address: [address] [address] [place] [address] [facility] [employer] [facility] [employer]/PPO Address: [address] [address] [place] [address] [facility] [employer]O Address: [address] [address] [place] [address] [facility] [employer] Address: [address] [address] [place] [address] Advance Directives For more information, please contact: [phone] * Full Code (Latest Code Status on File) Date Activated Date Inactivated Comments 03/22/2023 7:26 AM 03/22/2023 7:25 PM * Full Code Date Activated Date Inactivated Comments 04/30/2021 11:26 AM 05/01/2021 7:34 PM Care Teams Patient Clerical Assistant Relationship Specialty Start Date End Date Asif Kang MD [address] [facility] [address] [place] [address] PCP - General Internal Medicine 02/10/23 Shonna Dupree PA [address] [facility], [facility] [address] [place] [address] Physician Mining Professionals Physician Mining Professionals 02/10/23
--- OUTSIDE RECORDS SUMMARY | 2025-02-04 15:59 | XMS_ITS | Clinical Summary ---
Author Organization [facility] Address [address] [place] [address] [place] [address] Care Team Providers Care Gasoline Tractor Operator Name Role Phone Unavailable Primary Care Provider [...]
--- OUTSIDE RECORDS SUMMARY | 2025-02-04 15:59 | XMS_ITS | Encounter Summary ---
Author Organization [facility] Address [address] [place] [address] Phone Care Team Providers Care Boarding House Manager Name Role Phone Lucille Haney MD Primary Care Provider Jose Ortiz MD Primary Care Provider [phone] Isela Shell RN Unavailable Shonna Dupree Unavailable Asif Kang MD Primary Care Provider Encounter Details Date Type Department Care Team (Late st Contact Info) Description 07/25/2020 Telephone [facility] Sleep [address] [place] [address] 6th Floor [address] [place] [address] Ada Arevalo, RPSGT Social History [...] on file Legal Sex Female 8:08 AM FLOATER OPERATOR Gender Identity Female 07/29/2021 4:09 PM CDT Sexual Orientation Straight 09/01/2019 2: 23 PM FLOATER OPERATOR documented as of this encounter Plan of Treatment Not on file documented as of this encounter Visit Diagnoses Not on filedocumented in this encounter Additional Health Concerns Infection Onset Date Last Indicated Resolved Time Exposure, COVID-19 Comment:Added automatically based on COVID19 lab answers indicating exposure risk 10/01/2020 10/01/2020 10/16/2020 3:[address] COVID: Suspected 09/17/2021 09/17/2021 09/17/2021 8:47 AM FLOATER OPERATOR COVID: Suspected 09/17/2021 09/17/2021 09/18/2021 3:29 AM FLOATER OPERATOR COVID: Suspected 02/19/2022 02/19/2022 02/19/2022 8:31 AM CDT COVID: Suspected 02/19/2022 02/19/2022 02/19/2022 8:40 PM CDT COVID: Suspected 05/29/2022 05/29/2022 05/29/2022 6:50 PM CDT COVID19 05/29/2022 05/29/2022 06/08/2022 3:05 AM CDT COVID: Recovered Comment:Added based on recent COVID infection. 06/08/2022 06/09/2022 10/06/2022 3:[address] documented as of this encounter Care Teams Boarding House Manager Relationship Specialty Start Date End Date Lucille Haney MD [address] [place] [address] PCP - General Internal Medicine 08/29/19 03/31/22 Jose Ortiz MD [address] [place] [address] PCP - General Internal Medicine 04/01/22 02/09/23 Asif Kang MD [address] [facility] [address] [place] [address] PCP - General Internal Medicine 02/10/23 Isela Shell, RN [address] [facility] [address] [place] [address] Weed Thinner 10/08/22 Shonna Dupree PA [address] [facility], [facility] [address] [place] [address] Physician Commercial Sales Representative Physician Commercial Sales Representative 02/10/23 documented as of this encounter
--- NOTE | 2025-02-04 16:33 | ED_ITS ---
HPI - Skin/Abscess/Foreign Bdy General Chief complaint: Skin/Abscess/Foreign Body Stated complaint: Bleeding Bartholin Cyst Time Seen by Provider: 02/04/25 15:45 History of Present Illness HPI narrative: 39-year-old female presents to the emergency department for a painful lump to the right labia for the past 3 days. Patient states the left started is a pea- sized and has progressively worsened and is now draining blood. She notes burning with urination to this area. She contacted her OBGYN at [facility] and has an appointment with him tomorrow but was started on Macrobid to cover for a urinary tract infection which she has been taking without improvement. She denies abdominal pain, fever, vomiting, injury or trauma, sores, concern for STDs. Related Data Home Medications ?Medication ?Instructions ?Recorded ?Confirmed ?Last Taken ?Type ondansetron HCl 4 mg tablet 10/02/19 Unknown History topiramate 25 mg tablet 10/02/19 Unknown History Allergies Allergy/AdvReac Type Severity Reaction Status Date / Time sulfamethoxazole (From Allergy Intermediate Hives Verified 02/04/25 13:13 Bactrim) topiramate (From Topamax) Allergy Intermediate Drowsy Verified 02/04/25 13:13 trimethoprim (From Bactrim) Allergy Intermediate Hives Verified 02/04/25 13:13 Review of Systems Review of Systems: All systems reviewed & are unremarkable except as noted in HPI and below PMFSH Family History Family History Mother Family history of mental disorder Depression Family history of gastrointestinal disorder Family history of arthritis Father Family history of mental disorder Hypertension Other Family history of hepatitis Social History Social History Smoking status: Never smoker Second hand tobacco smoke exposure: No Alcohol intake: current Exam Narrative: GENERAL: Well-appearing, well-nourished, and in no acute distress. HEAD: Normocephalic, atraumatic. EYES: EOMI. ENT: Nares clear, no rhinorrhea or epistaxis. Mucous membranes moist. NECK: Supple. CHEST: Clear to auscultation. No respiratory distress. HEART: Regular rate and rhythm. No murmur heard. Normal peripheral pulses. ABDOMEN: Soft, nontender, nondistended, normal active bowel sounds. : chaperoned by RN Stephanie which shows a actively draining 2 cm fluctuant abscess to the right labia majora at the 10 o'clock position with tenderness and malodorous purulent drainage. Minimal surrounding erythema and induration proximally. No involvement of the mucosa. EXTREMITIES: Normal range of motion. No edema. SKIN: Warm, dry, no rash. NEURO: No focal deficits. Alert and oriented x3 Course Vital Signs Vital signs: Vital Signs Temperature 98 F 02/04/25 13:34 Pulse Rate 86 02/04/25 13:34 Respiratory Rate 16 02/04/25 13:34 Blood Pressure 113/74 02/04/25 13:34 Pulse Oximetry 100 02/04/25 13:34 Oxygen Delivery Room Air 02/04/25 13:34 Temperature 98 F 02/04/25 13:34 Pulse Rate 86 02/04/25 13:34 Respiratory Rate 16 02/04/25 13:34 Blood Pressure 113/74 02/04/25 13:34 Pulse Oximetry 100 02/04/25 13:34 Oxygen Delivery Room Air 02/04/25 13:34 Procedures Abscess I/D other: Date of Incision: 02/04/25 Time of Incision: 18:10 Side (if applicable): right Local Anesthetic: lidocaine 1% Amount of anesthesia used (mL): 3 Technique: incised with #11 blade Amount of fluid expressed (mL): 3 Packing used?: iodoform I&D Results: Pus and Blood MDM - Skin/Abscess/Foreign Bdy MDM Narrative Medical decision making narrative: 39-year-old female presents emergency department for right labial abscess for the past 3 days. Triage vitals are stable. Exam is significant for the above. Local anesthetic applied an abscess I&D to with expression of purulence, sebaceous fluids and blood. Abscess packed with iodoform patient was started on doxycycline. Advised packing removal in 2 days. Her urinalysis shows 1+ ketones trace leuk esterase, white blood cells or bacteria. Her is negative. She is currently taking Macrobid for UTI per her OBGYN and has 2 days left, advised to finish the course. She has an appointment with her OBGYN in 2 days which I encouraged her to attend. Advised Sitz baths, naproxen for pain, discussed strict ED return precautions. She is agreeable with the plan and verbalized understanding. Discharged in stable condition Lab Data Labs: Lab Results 02/04/25 02/04/25 Range/Units 16:38 16:59 Urine Color Yellow (Yellow) Urine Appearance Clear (Clear) Urine pH 5.5 (5.0-9.0) Ur Specific Capac 1.028 (1.001-1.035) Urine Protein Negative (Negative) mg/dL Urine Glucose (UA) Negative (Negative) mg/dL Urine Ketones 1+ H (Negative) mg/dL Ur Blood (Man) Negative (Negative) Urine Nitrate Negative (Negative) Urine Bilirubin Negative (Negative) Urine Urobilinogen 1.0 (<2.0) mg/dL Leukocyte Esterase Rfl Trace H (Negative) KIA/UL Urine RBC 0-2 (0-2) /hpf Urine WBC 0-5 (0-3) /hpf Ur Squamous Epith Cells Moderate (Few) /hpf Urine Bacteria None seen /hpf Urine Casts 0-2 POC Urine HCG, Qual Negative (Negative) Discharge Plan Discharge Clinical Impression: Abscess of labia Patient Disposition: Home Condition: Stable Instructions: Antibiotic Form, Abscess (ED), Sitz Bath (DC) Additional Instructions: You were evaluated in the emergency department for an abscess to her labia. The abscess was incised in fluid was drained. Please take the antibiotics as directed. Do cyst baths several times a day as discussed. Take naproxen as needed for pain. Follow-up with your polisher implant at her appointment on Thursday. Return to the emergency department if you develop a fever, worsening pain, increasing redness or other concerning symptoms. Patient Language: Polish Prescriptions: New doxycycline monohydrate 100 mg capsule 100 mg PO BID Qty: 14 0RF naproxen 500 mg tablet 500 mg PO BID PRN (Reason: pain) Qty: 20 0RF No Action ondansetron HCl 4 mg tablet topiramate 25 mg tablet cetirizine-pseudoephedrine [Zyrtec-D] 5-120 mg tablet extended release 12 hr 1 tablet PO Q12H PRN (Reason: nasal congestion) Qty: 12 0RF prednisone 20 mg tablet 40 mg PO DAILY 5 Days Qty: 10 0RF codeine-guaifenesin [Virtussin AC] 10-100 mg/5 mL liquid 5 ml PO Q6H PRN (Reason: cough) Qty: 120 0RF Follow-up/Referrals: PHYSICIAN NOT ON STAFF,NONSTAFF [Primary Care Provider] -
[2025-02-04 16:53] LABS: Add Urine Microscopic? YES; Appearance Urine Clear (Clear); Bacteria Urine None Seen /hpf; Bilirubin Urine Negative (Negative); Blood Urine Negative (Negative); Color Urine Yellow (Yellow); Glucose Urine UA Negative (Negative); Ketones Urine 1+ mg/dL (Negative); Leukocyte Esterase Ur Trace LEU/UL (Negative); Nitrate Urine Negative (Negative); Non Pathogenic Casts 0-2; Protein Urine Negative (Negative); RBC Urine 0-2 /hpf (0-2); Specific Grav Ur 1.028 (1.001-1.035); Squamous Epithelial Cell Urine Moderate /hpf (Few); WBC Urine 0-5 /hpf (0-3); pH Urine 5.5 (5.0-9.0)
[2025-02-04 17:01] LABS: BEDSIDEPREGUCG Negative (Negative)
[2025-02-04] MEDS: DOXYCYCLINE HYCLATE 100 MG TABLET PO (18:29)
[2025-02-04] MEDS: HYDROcodone/acetaminophen (*CRX) 5-325 MG TABLET 1 TAB PO (18:29)
== END 2025-02-04 18:32 | disposition home or self-care (01) ==
PROVIDERS: Emergency Provider Physician Assistant
DX: N76.4 Abscess of vulva (principal)
CPT/HCPCS: 56405; 81001; 81025; 99283; A9270; J2003